=== PATIENT | male | born 1980 | race Caucasian/White ===

== ENCOUNTER 2024-03-30 08:58 | Inpatient (IN) ==
--- NOTE | 2024-03-30 09:33 | Emergency Department Note ---
Impression & Plan Abscess of rectum ED Provider Note Provider: Jesus Fernandez MD DATE OF SERVICE: 03/30/2024 CHIEF COMPLAINT: Lower abdominal to rectal pain HISTORY OF PRESENT ILLNESS: Patient is a 43-year-old gentleman distant history of opioid dependence presenting here today reporting over the past maybe a week or so some rectal discomfort into the mid to right lower abdomen. Worsened Tuesday and was seen by his report at [facility] on Tuesday. Was diagnosed with a rectal access and started on Augmentin. He is been taking the antibiotic but due to worsening pain and discomfort came here. No nausea or vomiting. Has not had a bowel movement in several days but no rectal bleeding. No blood in the urine reported with maybe little bit of decreased urination. Denies a history of rectal or anal abscesses. Reports pain worsened again and now spread little into the both testicle area. Denies testicular swelling. Denies trauma. No chest pain or shortness of breath reported. Has been using some Tylenol but not this morning. PAST MEDICAL HISTORY: As noted above MEDICATIONS: Reviewed home medications SOCIAL HISTORY: Smoker PHYSICAL EXAM: GENERAL: alert and oriented on stretcher appears uncomfortable leaning on the right hip Head: normocephalic and atraumatic EYES: No injection, discharge or icterus. PERRL, EOMI. NECK: Trachea midline ENT: Mucous membranes pink and moist. LUNGS: Airway patent. No retractions or tachypnea HEART: Regular rate and rhythm. ABDOMEN: Soft some slight mid right lower abdominal tenderness. No particular guarding or distention appreciable otherwise. No upper abdominal tenderness. Rectal: With nurse RN manager of security, no obvious external erythema or fluctuance. Some slight tenderness just posterior to the anal verge as well as slightly into the perineum. No obvious swelling or redness of the testicles or gangrenous changes noted. SKIN: Acyanotic, warm, dry, without rashes EXTREMITIES: Without swelling, tenderness or deformity NEUROLOGICAL: No focal deficits. No aphasia. No facial droop or slurred speech. Ambulatory. EK bpm sinus tachycardia. No PVC or PAC. No acute ST segment elevation with QTc 467. CONTINUOUS CARDIAC MONITORING: was ordered and showed a heart rate of 100s-110s bpm in sinus tachycardia Patient's laboratory studies and imaging reviewed. Differential includes Appendicitis, testicular torsion, infections, diverticulitis, UTI, obstruction, mesenteric ischemia, aortic pathology, inflammatory bowel disease, renal colic, PUD, pancreatitis, biliary pathology, hernia, volvulus, constipation, as well as other pathologies. IMPRESSION/MEDICAL DECISION MAKING: Patient appearing uncomfortable. Afebrile here. Has been Augmentin for several days reportedly without a rectal abscess. Cannot see outside imaging at this time. Given worsening will complete imaging today to evaluate. Doubt this is primarily testicular. Question of rectal abscess. No obvious skin findings but obviously want to exclude any Magaly's component. Will give empiric Zosyn at this time and some IV fluids and Toradol for pain. Some mild lower abdominal tenderness but not severely distended or peritoneal. Prior cholecystectomy reported and again no significant upper abdominal reports. Does not seem like kidney stone or primarily urinary related. Blood work today with leukocytosis of 16 without anemia. Normal platelet count. Some hyponatremia 130 with normal creatinine and LFT abnormalities. Discussion with Dr. Soler of radiology he sees findings of rectal abscess and has some suspicion for perforation may be present. Reached out discussed with general surgery as well as our interventional radiology physician internal medicine physician assistant.. Patient again denies any Fleet enema or rectal or anal intrusion recently. No history of rectal abscess reported. Covered again with Zosyn and vancomycin. Surgery initially recommended we see if colorectal surgery at [facility] would accept the patient. In discussion with colorectal surgery at [facility] they recommended general surgery continue care for the patient here. General surgery evaluated the patient and recommend admission to medicine for continued care here at this time. 2.5 L of total IV fluid ordered for hydration more than 30 ml/kg IVF. DIAGNOSIS: Rectal abscess DISPOSITION: Hospitalist will evaluate Patient was agreeable with this plan. Past Med/Surg History Problem List Abscess of rectum (Acute) Social History Smoking Status: Current every day smoker Preferred Language: Serbian Feels Safe at Home: Yes Allergies Allergies Allergy/AdvReac Type Severity Reaction Status Date / Time Unable to Assess Allergy Unverified 03/30/24 11:30 Home Meds Home Medications Medication Instructions Recorded Confirmed amoxicillin 875 mg-potassium 1 tab PO Q12H 03/30/24 03/30/24 clavulanate 125 mg tablet omeprazole 20 mg capsule,delayed 20 mg PO DAILY 03/30/24 03/30/24 release Results & Data (ED) Vital Signs Vital Signs - 24 hr 03/30/24 09:09 03/30/24 09:20 03/30/24 09:27 Temperature 36.9 C 37.2 C Temperature Source Temporal Artery Scan Oral Pulse Rate 129 H 113 H Pulse Rate [Right Finger] Pulse Rate from SpO2 Sensor Respiratory Rate 17 Respiratory Effort / Characteristics Non-Labored Spontaneous Respiratory Depth Normal Blood Pressure 122/73 Blood Pressure [Right Arm] Blood Pressure Mean 89 Blood Pressure Mean [Right Arm] Pulse Oximetry 98 Oxygen Delivery Method Room Air Sepsis Recent Fever Within 48 Hours No Sepsis New/Unexplained Change in Mental Status No Sepsis Action Taken by Nursing No Action Required 03/30/24 10:30 03/30/24 11:00 03/30/24 11:03 Temperature Temperature Source Pulse Rate 105 H Pulse Rate [Right Finger] 107 H Pulse Rate from SpO2 Sensor Respiratory Rate 24 20 Respiratory Effort / Characteristics Non-Labored Respiratory Depth Normal Blood Pressure 123/79 121/81 Blood Pressure [Right Arm] 140/73 Blood Pressure Mean 93 87 Blood Pressure Mean [Right Arm] 95 Pulse Oximetry 94 Oxygen Delivery Method Room Air Sepsis Recent Fever Within 48 Hours Sepsis New/Unexplained Change in Mental Status Sepsis Action Taken by Nursing 03/30/24 11:09 03/30/24 11:39 03/30/24 11:57 Temperature Temperature Source Pulse Rate 112 H 99 H 109 H Pulse Rate [Right Finger] Pulse Rate from SpO2 Sensor 112 H 99 H 108 H Respiratory Rate 24 26 H 22 Respiratory Effort / Characteristics Respiratory Depth Blood Pressure 121/81 Blood Pressure [Right Arm] Blood Pressure Mean 94 Blood Pressure Mean [Right Arm] Pulse Oximetry 97 95 96 Oxygen Delivery Method Room Air Sepsis Recent Fever Within 48 Hours Sepsis New/Unexplained Change in Mental Status Sepsis Action Taken by Nursing 03/30/24 12:03 03/30/24 12:12 03/30/24 12:39 Temperature Temperature Source Pulse Rate 100 H 103 H 108 H Pulse Rate [Right Finger] Pulse Rate from SpO2 Sensor 101 H 104 H 108 H Respiratory Rate 21 25 H 19 Respiratory Effort / Characteristics Respiratory Depth Blood Pressure Blood Pressure [Right Arm] Blood Pressure Mean Blood Pressure Mean [Right Arm] Pulse Oximetry 96 95 96 Oxygen Delivery Method Sepsis Recent Fever Within 48 Hours Sepsis New/Unexplained Change in Mental Status Sepsis Action Taken by Nursing 03/30/24 12:48 03/30/24 13:21 Temperature Temperature Source Pulse Rate 102 H 109 H Pulse Rate [Right Finger] Pulse Rate from SpO2 Sensor 102 H 227 H Respiratory Rate 24 20 Respiratory Effort / Characteristics Respiratory Depth Blood Pressure Blood Pressure [Right Arm] Blood Pressure Mean Blood Pressure Mean [Right Arm] Pulse Oximetry 97 97 Oxygen Delivery Method Sepsis Recent Fever Within 48 Hours Sepsis New/Unexplained Change in Mental Status Sepsis Action Taken by Nursing Laboratory Data 03/30/24 Unknown 03/30/24 Unknown Lab Results 03/30/24 Range/Units 09:39 POC Hgb 15.6 (14.0-18.0) g/dl POC Hct 46 (42-52) % POC Sodium 130 L (135-144) mmol/L POC Potassium 3.8 (3.3-5.0) mmol/L POC Chloride 93 L (101-112) mmol/L POC Total CO2 23 L (24-31) mmol/L POC Anion Gap 18.0 (16-25) mmol/L POC BUN 5 L (7-18) mg/dl POC Creatinine 0.8 (0.6-1.3) mg/dl POC Glucose (other) 124 H (70-99) mg/dl POC Ioniz Calcium Jay 1.14 (1.12-1.32) mmol/l Administered Medications Sodium Chloride (Nss) 1,000 mls @ 80 mls/hr IV .[id number] WILLIAMS Stop: 03/31/24 14:44 Last Admin: 03/30/24 15:30 Dose: 80 mls/hr Documented By: NRB Oxycodone HCl (Oxycodone Hcl Ir 5 Mg Tab (Immediate Release)) 5 mg PO Q6H PRN PRN Reason: Severe Pain (Scale 7, 8, 9,10) Stop: 04/13/24 13:44 Last Admin: 03/30/24 14:40 Dose: 5 mg Documented By: ALS Discontinued Medications Sodium Chloride (Nss) 1,000 mls @ 999 mls/hr IV .Q1H1M STA Stop: 03/30/24 10:28 Last Infusion: 03/30/24 11:26 Dose: Infused Documented By: Admin: 03/30/24 09:52 Dose: 999 mls/hr Documented By: ALS Piperacillin Sod/Tazobactam Sod (Zosyn) 4.5 gm in 100 mls @ 200 mls/hr IV NOW ONE Stop: 03/30/24 09:57 Last Infusion: 03/30/24 10:21 Dose: Infused Documented By: Admin: 03/30/24 09:51 Dose: 200 mls/hr Documented By: BREEZY Vancomycin HCl 1,500 mg/ (Sodium Chloride) 530 mls @ 200 mls/hr IV NOW ONE Stop: 03/30/24 13:43 Last Infusion: 03/30/24 13:53 Dose: Infused Documented By: Admin: 03/30/24 11:45 Dose: 200 mls/hr Documented By: ALS Sodium Chloride (Nss) 1,000 mls @ 999 mls/hr IV .Q1H1M ONE Stop: 03/30/24 14:02 Last Infusion: 03/30/24 15:31 Dose: Infused Documented By: Admin: 03/30/24 13:33 Dose: 999 mls/hr Documented By: ALS Sodium Chloride (Nss) 500 mls @ 999 mls/hr IV .Q31M ONE Stop: 03/30/24 13:32 Last Infusion: 03/30/24 13:53 Dose: Infused Documented By: Admin: 03/30/24 13:02 Dose: 999 mls/hr Documented By: DAVID Ioversol (Optiray 320 100ml) 94 ml IV ONCE ONE Stop: 03/30/24 10:16 Last Admin: 03/30/24 10:15 Dose: 94 ml Documented By: AQUILES Ketorolac Tromethamine (Ketorolac Tromethamine 15 Mg/Ml Vial) 10 mg IV NOW STA Stop: 03/30/24 09:29 Last Admin: 03/30/24 09:51 Dose: 10 mg Documented By: BREEZY Imaging Data Radiologist's Impression: Abdomen/Pelvis CT 03/30/24 09:28 CT SCAN OF THE ABDOMEN AND PELVIS WITH IV CONTRAST CLINICAL HISTORY: Lower abdominal/rectal pain. COMPARISON STUDY: No priors. TECHNIQUE: Following the IV administration of 94 cc of Optiray 320, CT scan of the abdomen and pelvis is performed from the lung bases to the proximal femora. Images are reviewed in the axial, sagittal, and coronal planes. IV contrast was administered without complication. A dose lowering technique was utilized adhering to the principles of ALARA. CT DOSE: 1347.81 mGy.cm FINDINGS: Lung bases: The heart is normal in size and without pericardial effusion. The lung bases are clear. Liver: The contrast-enhanced liver is normal in size, contour, and attenuation. Fatty infiltration is seen adjacent to the falciform ligament. There is no intrahepatic biliary ductal dilatation. The hepatic veins and portal veins are patent. Gallbladder: Surgically absent and clips in the gallbladder fossa. Spleen: Normal in size and attenuation. Pancreas: Unremarkable. Adrenal glands: Unremarkable. Kidneys: The contrast enhanced kidneys are normal in size and without hydronephrosis. The kidneys enhance symmetrically. A 4 mm nonobstructing calculus is seen on the left. No right renal calculi are clearly identified on this contrast-enhanced examination and there is no ureteral stone. Abdominal vasculature: The abdominal aorta is normal in course and caliber noting mild atherosclerotic calcification. Bowel: No bowel obstruction is seen. The rectal wall is thickened with significant surrounding inflammation. There is apparent mucosal discontinuity seen posteriorly involving the lower rectum which is suspicious for perforation. A multiloculated gas and fluid containing collection posterior to the rectum measures 6.4 x 3.3 x 4.2 cm as seen on axial image #325. This closely approximates but does not extend through the levator musculature. The appendix is not visualized. Peritoneum: There is no intraperitoneal free air or abdominal ascites. There is a small fat-containing umbilical hernia. Lymphadenopathy: None. Pelvic viscera: The the bladder wall appears thickened. The prostate and seminal vesicles are normal as imaged. Skeletal structures: No lytic or blastic lesions are seen. IMPRESSION: 1. There is evidence of proctitis with a large posterior perirectal abscess as detailed above. 2. There is apparent mucosal discontinuity involving the posterior aspect of the lower rectum. Perforation is not excluded. 3. Bladder wall thickening is nonspecific and likely related to adjacent inflammation. Correlate with clinical findings and urinalysis. 4. Left-sided nephrolithiasis. 5. Additional findings as above. ACT 112: Negative or not required by law. Electronically signed by: Pepe Soler M.D. 03/30/2024 10:34 AM Discharge Plan Visit Data Chief Complaint: Infection Stated Complaint: RECTAL INFECTION ED Provider: Jesus Fernandez Discharge Problem: Abscess of rectum Patient Disposition: Being Evaluated by Hospitalist
[2024-03-30 09:51] LABS: iSTAT Creatinine 0.8 mg/dl (0.6-1.3); iSTAT Hemoglobin 15.6 g/dl (14.0-18.0); iSTAT Ionized Calcium 1.14 mmol/l (1.12-1.32); iSTAT Potassium 3.8 mmol/L (3.3-5.0)
[2024-03-30] MEDS: KETOROLAC TROMETHAMINE 15 MG/ML VIAL IV STA (09:51)
[2024-03-30] MEDS: PIPERACILLIN/TAZOBACTAM 4.5 GM/100 ML BAG IV ONE (09:51)
[2024-03-30] MEDS: SODIUM CHLORIDE 0.9% 1,000 ML IV STA (09:52)
[2024-03-30 10:07] LABS: Basophils # (auto) 0.02 K/uL (0.00-0.20); Basophils % (auto) 0.1 %; Eosinophils # (auto) 0.04 K/uL (0.00-0.50); Eosinophils % (auto) 0.2 %; Hemoglobin 14.4 g/dl (14.0-18.0); Immature Granulocytes # (auto) 0.09 K/uL (0.01-0.20); Immature Granulocytes % (auto) 0.6 %; Lymphocytes % (auto) 4.3 %; Mean Corpuscular Hemoglobin 30.6 pg (25.0-34.0); Mean Corpuscular Hgb Conc 34.3 g/dL (32.0-36.0); Mean Corpuscular Volume 89.4 fL (80.0-100.0); Mean Platelet Volume 10.2 fL (9.4-12.4); Monocytes # (auto) 1.57 K/uL (0.11-0.59); Monocytes % (auto) 9.6 %; Neutrophils # (auto) 13.88 K/uL (1.40-6.50); Neutrophils % (auto) 85.2 %; Platelet Count 304 K/uL (130-400); RDW Standard Deviation 42.8 fL (36.4-46.3)
[2024-03-30 10:13] LABS: Albumin Globulin Ratio 1.2 (0.9-2); BUN Creatinine Ratio 8.1 (10-20); Bilirubin,Total 0.9 mg/dl (0.2-1.0); Creatinine Clr Calc Pharmacy 143.2 ml/min; Est GFR (Non-African American) 112.2 ml/min; Globulin 3.3 gm/dl (2.5-4.0); Potassium 3.7 mmol/L (3.5-5.1); Total Protein 7.3 gm/dl (6.0-8.3)
[2024-03-30] MEDS: OPTIRAY 320 100ml IV ONE (10:15)
[2024-03-30 10:22] LABS: Prothrombin Time 11.1 Seconds (9.0-12.0)
--- NOTE | 2024-03-30 10:35 | CT Scan Report ---
CT SCAN OF THE ABDOMEN AND PELVIS WITH IV CONTRAST CLINICAL HISTORY: Lower abdominal/rectal pain. COMPARISON STUDY: No priors. TECHNIQUE: Following the IV administration of 94 cc of Optiray 320, CT scan of the abdomen and pelvi s is performed from the lung bases to the proximal femora. Images are reviewed in the axial, sagittal , and coronal planes. IV contrast was administered without complication. A dose lowering technique wa s utilized adhering to the principles of ALARA. CT DOSE: 1347.81 mGy.cm FINDINGS: Lung bases: The heart is normal in size and without pericardial effusion. The lung bases are clear. Liver: The contrast-enhanced liver is normal in size, contour, and attenuation. Fatty infiltration is seen adjacent to the falciform ligament. There is no intrahepatic biliary ductal dilatation. The hep atic veins and portal veins are patent. Gallbladder: Surgically absent and clips in the gallbladder fossa. Spleen: Normal in size and attenuation. Pancreas: Unremarkable. Adrenal glands: Unremarkable. Kidneys: The contrast enhanced kidneys are normal in size and without hydronephrosis. The kidneys enh ance symmetrically. A 4 mm nonobstructing calculus is seen on the left. No right renal calculi are cl early identified on this contrast-enhanced examination and there is no ureteral stone. Abdominal vasculature: The abdominal aorta is normal in course and caliber noting mild atheroscleroti c calcification. Bowel: No bowel obstruction is seen. The rectal wall is thickened with significant surrounding inflam mation. There is apparent mucosal discontinuity seen posteriorly involving the lower rectum which is suspicious for perforation. A multiloculated gas and fluid containing collection posterior to the rec gilma measures 6.4 x 3.3 x 4.2 cm as seen on axial image #325. This closely approximates but does not e xtend through the levator musculature. The appendix is not visualized. Peritoneum: There is no intraperitoneal free air or abdominal ascites. There is a small fat-containin g umbilical hernia. Lymphadenopathy: None. Pelvic viscera: The the bladder wall appears thickened. The prostate and seminal vesicles are normal as imaged. Skeletal structures: No lytic or blastic lesions are seen. IMPRESSION: 1. There is evidence of proctitis with a large posterior perirectal abscess as detailed above. 2. There is apparent mucosal discontinuity involving the posterior aspect of the lower rectum. Perfor ation is not excluded. 3. Bladder wall thickening is nonspecific and likely related to adjacent inflammation. Correlate with clinical findings and urinalysis. 4. Left-sided nephrolithiasis. 5. Additional findings as above. ACT 112: Negative or not required by law. Electronically signed by: Pepe Soler M.D. 03/30/2024 10:34 AM
--- NOTE | 2024-03-30 10:53 | Electrocardiogram Report ---
Test Reason : Blood Pressure : */* mmHG Vent. Rate : 107 BPM Atrial Rate : 107 BPM P-R Int : 132 ms QRS Dur : 82 ms QT Int : 350 ms P-R-T Axes : 62 54 69 degrees QTcB Int : 467 ms Sinus tachycardia Prolonged QT Abnormal ECG No previous ECGs available Confirmed by Jesus Bailey ([id number]) on 03/30/2024 10:52:57 AM Referred By: Confirmed By: Jesus Bailey
[2024-03-30] MEDS ORDERED: VANCOMYCIN CONSULT ACTIVE PRN (11:05)
[2024-03-30] MEDS: VANCOMYCIN HCL 1,500 MG in SODIUM CHLORIDE 0.9% 500 ML IV ONE (11:45)
--- NOTE | 2024-03-30 13:00 | Surgery Consultation ---
<Statement entered by Macarena Valencia DO - 03/31/24 07:56> This case was discussed with the surgical PA, I agree with this plan Date of Consultation March 30, 2024 Assessment & Plan (1) Abscess of rectum: This is a 43yM with a past history of IVDA who presents to our ER on 03/30/24 with complaints of lower abdominal pain and rectal pain. He states it started on Tuesday and worsened on Tuesday prompting him to go [facility]. He states they diagnosed him with a jason rectal abscess via CT scan but did not exam his anal/buttocks area. He was discharged on a course of augmentin of which he has been taking. Despite this, his pain has worsened throughout the week therefore he presented here for further evaluation. He ended up undergoing a CT a/p which revealed proctitis with a large posterior perirectal abscess measuring 6.4x3.3x4.2cm. There is apparent mucosal discontinuity involving the posterior aspect of the lower rectum. Perforation is not excluded. No stool regimen per rectum. In the ER blood work shows a WBC 16.3, Hbg 14.2, Cr 0.7. Vitals show patient is tachycardic to the 100s-110s, temp 98-99F, stable blood pressure. On exam patient is awake/alert. Abdomen is soft, mild distention, with discomfort to palpation in the suprapubic regions and off to the mid/right lower abdomen. On exam of rectal region there is no obvious areas of erythema/induration/fluctuance or drainage. He has some tenderness noted in the perineal region. After review of patient's CT scan images I discussed the patient with my attending and radiology. Radiology believes pt should be sent out and transferred & unable to perform drainage here. We then asked the ER at this time given the size of the abscess, location, and the ? of possible rectal perforation to work on transfer as the patient would be best served by a tertiary center where there is a colorectal surgeon present in addition to a more robust IR capabilities than we can offer here at this time. Unfortunately after the ER reached out to a tertiary center who refused to accept patient at this time and recommended management okay by us here. For now we will keep patient NPO with IVF and IV abx. We will continue to monitor the patient closely for any deterioration in status. History of Present Illness History of Present Illness This is a 43yM with a past history of IVDA who presents to our ER on 03/30/24 with complaints of lower abdominal pain and rectal pain. He states it started on Tuesday and worsened on Tuesday prompting him to go to [facility] for [facility]. He states they diagnosed him with a jason rectal abscess via CT scan but did not exam his anal/buttocks area. He was discharged on a course of augmentin of which he has been taking. Despite this, his pain has worsened throughout the week therefore he presented here for further evaluation. He ended up undergoing a CT a/p which revealed proctitis with a large posterior perirectal abscess measuring 6.4x3.3x4.2cm. There is apparent mucosal disc ontinuity involving the posterior aspect of the lower rectum. Perforation is not excluded. Patient states he has been running constipated and he is normally regular. Last real BM was beginning of this week. He has been taking oral stool softeners without success. He denies trying any suppositories or enema's or inserting anything per rectum. He denies any fevers/chills, nausea/vomiting, FREDERICK/dizziness/lightheadedness. He ate last night without worsening symptoms. Never been told he had a jason rectal abscess in the past. He has been peeing okay. PSH includes cholecystectomy. Allergies Allergy/AdvReac Type Severity Reaction Status Date / Time Unable to Assess Allergy Unverified 03/30/24 11:30 Home Medications Medication Instructions Recorded Confirmed Type amoxicillin 875 mg-potassium 1 tab PO Q12H 03/30/24 03/30/24 History clavulanate 125 mg tablet omeprazole 20 mg capsule,delayed 20 mg PO DAILY 03/30/24 03/30/24 History release Patient History Social History Smoking Status: Current every day smoker Preferred Language: German Feels Safe at Home: Yes Review of Systems Constitutional: no fever and no chills Respiratory: no dyspnea Cardiovascular: no chest pain Gastrointestinal: + abdominal pain (lower abdominal discom fort) and + constipation; no nausea and no vomiting Neurologic: no dizziness and no headache(s) Physical Exam Physical Exam: awake/alert Respiratory: normal respiratory effort Gastrointestinal (Abdomen): Inspection/Auscultation: + abdomen distended (mild) Percussion/Palpation: + abdomen tender (discomfort to palpation across lower abdomen, worse supra pubic region) and abdomen soft Results & Data Vital Signs (Past 12 Hours) Vital Signs Temp Pulse Pulse Resp BP BP Pulse Ox 03/30/24 11:09 112 H 24 121/81 97 03/30/24 11:03 121/81 03/30/24 11:00 107 H 20 140/73 94 03/30/24 10:30 105 H 24 123/79 03/30/24 09:27 113 H 03/30/24 09:20 99.0 F 03/30/24 09:09 98.4 F 129 H 17 122/73 98 O2 Del Method 03/30/24 11:09 Room Air 03/30/24 11:03 03/30/24 11:00 Room Air 03/30/24 10:30 03/30/24 09:27 03/30/24 09:20 03/30/24 09:09 Room Air Diagnostic Findings CT SCAN OF THE ABDOMEN AND PELVIS WITH IV CONTRAST CLINICAL HISTORY: Lower abdominal/rectal pain. COMPARISON STUDY: No priors. TECHNIQUE: Following the IV administration of 94 cc of Optiray 320, CT scan of the abdomen and pelvis is performed from the lung bases to the proximal femora. Images are reviewed in the axial, sagittal, and coronal planes. IV contrast was administered without complication. A dose lowering technique was utilized adhering to the principles of ALARA. CT DOSE: 1347.81 mGy.cm FINDINGS: Lung bases: The heart is normal in size and without pericardial effusion. The lung bases are clear. Liver: The contrast-enhanced liver is normal in size, contour, and attenuation. Fatty infiltration is seen adjacent to the falciform ligament. There is no intrahepatic biliary ductal dilatation. The hepatic veins and portal veins are patent. Gallbladder: Surgically absent and clips in the gallbladder fossa. Spleen: Normal in size and attenuation. Pancreas: Unremarkable. Adrenal glands: Unremarkable. Kidneys: The contrast enhanced kidneys are normal in size and without hydronephrosis. The kidneys enhance symmetrically. A 4 mm nonobstructing calculus is seen on the left. No right renal calculi are clearly identified on this contrast-enhanced examination and there is no ureteral stone. Abdominal vasculature: The abdominal aorta is normal in course and caliber noting mild atherosclerotic calcification. Bowel: No bowel obstruction is seen. The rectal wall is thickened with significant surrounding inflammation. There is apparent mucosal discontinuity seen posteriorly involving the lower rectum which is suspicious for perforation. A multiloculated gas and fluid containing collection posterior to the rectum measures 6.4 x 3.3 x 4.2 cm as seen on axial image #325. This closely approximates but does not extend through the levator musculature. The appendix is not visualized. Peritoneum: There is no intraperitoneal free air or abdominal ascites. There is a small fat-containing umbilical hernia. Lymphadenopathy: None. Pelvic viscera: The the bladder wall appears thickened. The prostate and seminal vesicles are normal as imaged. Skeletal structures: No lytic or blastic lesions are seen. IMPRESSION: 1. There is evidence of proctitis with a large posterior perirectal abscess as detailed above. 2. There is apparent mucosal discontinuity involving the posterior aspect of the lower rectum. Perforation is not excluded. 3. Bladder wall thickening is nonspecific and likely related to adjacent inflammation. Correlate with clinical findings and urinalysis. 4. Left-sided nephrolithiasis. 5. Additional findings as above. ACT 112: Negative or not required by law. Electronically signed by: Pepe Soler M.D. 03/30/2024 10:34 AM PG Care Time/CCT Total # of Minutes Spent Total Time Spent with Patient: Total time spent is greater than 50% in coordination of care (as documented) at patient's floor/unit and/or counseling patient: Coding Level of Care Code 15923 IN/OBS CONSULT LVL 4,60M Diagnoses Abscess of rectum K61.1
[2024-03-30] MEDS: SODIUM CHLORIDE 0.9% 500 ML IV ONE (13:02)
[2024-03-30 13:04] LABS: Influenza A virus by PCR Negative (Neg); Influenza B virus by PCR Negative (Neg); RSV by PCR Negative (Neg); SARS CoV2 RNA(COVID-19) Ceph NEGATIVE (Negative)
[2024-03-30] MEDS: SODIUM CHLORIDE 0.9% 1,000 ML IV ONE (13:33)
[2024-03-30] MEDS ORDERED: ONDANSETRON INJ 2 MG/ML 2 ML VIAL IV PRN (13:36)
[2024-03-30] MEDS ORDERED: ACETAMINOPHEN 325 MG TAB PO PRN (13:36)
--- NOTE | 2024-03-30 13:50 | History & Physical Report ---
Date of Service March 30, 2024 Assessment & Plan (1) Abscess of rectum: Plan Proctitis Rectal abscess Sepsis secondary to rectal infection Patient presented with rectal pain and pressure, failure of outpatient antibiotic therapy, pain and pressure progressed. Patient denies fever, reports no bowel movement or gas since Tuesday, denies nausea or vomiting, reports decreased appetite. Consult general surgery. IV fluid, n.p.o., IV antibiotic with Zosyn and vancomycin, pain management. PRN nausea meds Await further recommendation from general surgery. Other chronic medical conditions: Asthma, COPDteststable, chronic. DVT prophylaxis: Heparin subcu Full code History of Present Illness Chief Complaint: Rectal pain and pressure. Primary Care Provider: NO PCP 43-year-old male with PMH of asthma, COPD, current tobacco abuse presented to the ED with complaint of progressive rectal pain and pressure. Patient reports having rectal pain since Tuesday, went to [place] [place] [facility] on Tuesday and was discharged on Augmentin for rectal infection/abscess. Patient reports that the pain and pressure continued to worsen and hence presented to the ED. Patient denies febrile illness but has not moved bowel or gas since Tuesday. Patient denies sore throat or cough or chest pain or palpitation. Patient reports improvement in belly pain after pain medications at ED. Patient denies any pain or burning while passing urine, reports decreased appetite but denies nausea or vomiting. Patient reports smoking 1 packs a day for more than 30 years, reports drinking 4-6 beers a day, last drink was Tuesday. reports use of marijuana daily. Patient denies any chronic medications use at home, current medication is Augmentin that he was discharged with from recent ER visit for rectal infection. Full code Plan of care discussed with the patient and patient's significant other at bedside , both voiced understanding and were agreeable. Allergies Allergy/AdvReac Type Severity Reaction Status Date / Time Unable to Assess Allergy Unverified 03/30/24 11:30 Home Medications Medication Instructions Recorded Confirmed Type amoxicillin 875 mg-potassium 1 tab PO Q12H 03/30/24 03/30/24 History clavulanate 125 mg tablet omeprazole 20 mg capsule,delayed 20 mg PO DAILY 03/30/24 03/30/24 History release Past Med/Surg History Problem List (Updated 03/30/24 @ 13:05 by Jesus T Rebecca, M.D.) Abscess of rectum (Acute) Social History Smoking Status: Current every day smoker Preferred Language: British Feels Safe at Home: Yes Review of Systems Review of Systems: Negative otherwise mentioned in HPI. Physical Exam Physical Exam: GENERAL: Alert and oriented x3. NAD, on RA. HEENT: No pallor, no icterus. Pupils equal, round and reactive to light. Oral mucosa moist. NECK: No JVD, no neck masses. HEART: S1 and S2 heard. Regular rate and rhythm. Tachycardia. No murmur, no gallop. RESPIRATORY SYSTEM: Normal AP diameter. No accessory muscle use. No wheezing, no crackles. ABDOMEN: Soft, bowel sounds present, nontender, no distention. CENTRAL NERVOUS SYSTEM: No facial droop. Speech is clear. Obeys simple commands. Moves extremities. EXTREMITIES: No edema, no erythema seen. Rectal exam: no erythema noted but tenderness on palpation. Results & Data Results & Data Vital Signs (Past 12 Hours) Vital Signs Temp Pulse Pulse Resp BP BP Pulse Ox 03/30/24 12:48 102 H 24 97 03/30/24 12:39 108 H 19 96 03/30/24 12:12 103 H 25 H 95 03/30/24 12:03 100 H 21 96 03/30/24 11:57 109 H 22 96 03/30/24 11:39 99 H 26 H 95 03/30/24 11:09 112 H 24 121/81 97 03/30/24 11:03 121/81 03/30/24 11:00 107 H 20 140/73 94 03/30/24 10:30 105 H 24 123/79 03/30/24 09:27 113 H 03/30/24 09:20 37.2 C 03/30/24 09:09 36.9 C 129 H 17 122/73 98 O2 Del Method 03/30/24 12:48 03/30/24 12:39 03/30/24 12:12 03/30/24 12:03 03/30/24 11:57 03/30/24 11:39 03/30/24 11:09 Room Air 03/30/24 11:03 03/30/24 11:00 Room Air 03/30/24 10:30 03/30/24 09:27 03/30/24 09:20 03/30/24 09:09 Room Air
[2024-03-30] MEDS: oxyCODONE HCL IR 5 MG TAB (IMMEDIATE RELEASE) PO PRN (14:40)
[2024-03-30 14:44] LABS: Appearance Urine Clear (Clear); Bacteria Urine Automated None Seen (None Seen); Bilirubin Urine Negative (Negative); Blood Urine Negative (Negative); Cast Urine Automated 0-2 /lpf (0-2); Color Urine Yellow; Epithelial Cell Urine Auto 0-2 /hpf (0-2); Glucose Urine UA Trace (Negative); Ketones Urine 1+ (Negative); Leukocyte Esterase Urine Negative (Negative); Nitrite Urine Negative (Negative); Protein Urine Trace (Negative); RBC Urine Automated 0-2 /hpf (0-2); Specific Gravity Urine 1.015 (1.000-1.030); Urobilinogen Urine Negative (Negative); WBC Urine Automated 0-5 /hpf (0-5)
[2024-03-30] MEDS: SODIUM CHLORIDE 0.9% 1,000 ML IV SCH (15:30)
[2024-03-30] MEDS: KETOROLAC TROMETHAMINE 15 MG/ML VIAL IV PRN (16:51)
[2024-03-30] MEDS: PIPERACILLIN/TAZOBACTAM 4.5 GM/100 ML BAG IV SCH (17:19)
[2024-03-30] MEDS: VANCOMYCIN HCL 1,000 MG in SODIUM CHLORIDE 0.9% 250 ML IV SCH (19:50)
[2024-03-30] MEDS: HEPARIN SOD 5,000 UNIT/0.5 ML VIAL SQ SCH (21:03)
[2024-03-30] MEDS ORDERED: Nursing to Pharmacy Communication SCH (21:45)
[2024-03-31 07:30] LABS: Hemoglobin 12.9 g/dl (14.0-18.0); Mean Corpuscular Hemoglobin 30.2 pg (25.0-34.0); Mean Corpuscular Hgb Conc 33.1 g/dL (32.0-36.0); Mean Corpuscular Volume 91.3 fL (80.0-100.0); Mean Platelet Volume 10.1 fL (9.4-12.4); Platelet Count 277 K/uL (130-400); RDW Coefficient of Variation 13.2 % (11.5-14.5); RDW Standard Deviation 44.7 fL (36.4-46.3); Red Blood Count 4.27 M/uL (4.70-6.10); White Blood Count 13.41 K/ul (4.8-10.8)
[2024-03-31 07:53] LABS: BUN Creatinine Ratio 11.4 (10-20); Calcium 8.1 mg/dl (8.6-10.3); Creatinine Clr Calc Pharmacy 152.2 ml/min; Est GFR (Non-African American) 114.8 ml/min; Magnesium 1.4 mg/dl (1.7-2.4); Phosphorus 2.8 mg/dl (2.5-4.9)
--- NOTE | 2024-03-31 11:53 | Hospitalist Progress Note ---
Date of Service March 31, 2024 Assessment & Plan (1) Abscess of rectum: (2) Hypomagnesemia: Plan Patient 43-year-old gentleman with perirectal abscess Patient remains significantly ill, requiring IV antibiotics No plans for surgical intervention today Advance diet Replace magnesium Continue to monitor laboratory studies Activity as tolerated Admission and Anticipated Discharge Date Admission Date: March 30, 2024 Subjective Patient states he is feeling much better the pressure and pain in the perirectal area is improved. Physical Exam Physical Exam: Constitutional: Alert HEENT: Mucous membranes moist. Lungs: Clear to auscultation, decreased, no wheezes rales or rhonchi CV: S1-S2, regular Abdomen: Soft, nontender, nondistended Extremities: No significant edema Neuro: No focal deficits Psych: Cooperative, normal mood Results & Data Results & Data Vital Signs (Past 12 Hours) Vital Signs Temp Pulse Resp BP Pulse Ox O2 Del Method 03/31/24 08:00 Room Air 03/31/24 07:49 37.2 C 84 16 108/69 96 Room Air 03/31/24 06:12 94 H Diagnostic Findings Reviewed imaging, laboratory and diagnostic studies. Pertinent findings as below. WBCs 13.4, improved Magnesium 1.4
--- NOTE | 2024-03-31 12:09 | Pharmacy Report ---
Pharmacy PK ABX Note - Date of Service March 31, 2024 - Assessment and Plan Assessment 43 year old M receiving Vancomycin and Zosyn for treatment of perirectal abscess. * Day #1 of antimicrobial therapy. Afebrile. Leukocytosis improving. Renal fxn stable. * No cultures taken. Vancomycin ordered empirically so will d/c tomorrow evening. Plan Vancomycin * Loading dose: 1500 mg IV x 1 * Maintenance dose: 1000 mg IV every 8 hours * Regimen is predicted to achieve target AUC/GRACIA of 400-600 mg/L.hr * Trough level ordered for: 04/01/24 Pharmacy will continue to follow and will adjust dose/frequency as necessary. Thank you. Pharmacy has transitioned to AUC monitoring for vancomycin. AUC/GRACIA is the preferred PK/PD target and is associated with decreased risk of nephrotoxicity compared to traditional trough targets.
[2024-03-31] MEDS: MAGNESIUM SULFATE / D5W 1 GM/100 ML BAG IV SCH (12:24)
[2024-03-31] MEDS: MAGNESIUM OXIDE 400 MG TAB PO SCH (14:19)
--- NOTE | 2024-03-31 19:32 | Surgery Progress Note ---
Date of Service March 31, 2024 Assessment & Plan (1) Abscess of rectum: Plan: Abscess within the pelvis/presacral space. Afebrile, HD stable with decreased leukocytosis and improved symptoms A regular diet was initiated by medicine today Continue conservative management with IV abx Will f/u in the am Admission and Anticipated Discharge Date Admission Date: March 30, 2024 Subjective Patient seen and examined this am. States he feels much better than he did at admission. He denies N/V and pain. Physical Exam Constitutional: healthy appearing; not ill appearing, not in distress and not diaphoretic Respiratory: normal respiratory effort; no respiratory distress, no labored breathing and does not use accessory muscles Gastrointestinal (Abdomen): Inspection/Auscultation: abdomen normal to inspection; abdomen not distended Percussion/Palpation: abdomen soft; abdomen nontender, no guarding and abdomen not rigid There are no evidence signs of abscess formation on perianal examination. The patient states he no longer has tenderness with palpation of the perianal area and buttock region as it was prior to admission. Results & Data Vital Signs (Past 12 Hours) Vital Signs Temp Pulse Resp BP Pulse Ox O2 Del Method 03/31/24 16:53 37.3 C 98 H 03/31/24 15:09 37.7 C H 115 H 16 108/66 97 Room Air 03/31/24 08:00 Room Air 03/31/24 07:49 37.2 C 84 16 108/69 96 Room Air Laboratory Results WBC 13.4 this am from 16.3 yesterday PG Care Time/CCT Total # of Minutes Spent Total Time Spent with Patient: Total time spent is greater than 50% in coordination of care (as documented) at patient's floor/unit and/or counseling patient: Coding Level of Care Code 83711 SUB INP/OBS CARE 09/01MIN Diagnoses Abscess of rectum K61.1
[2024-04-01 06:08] LABS: Hemoglobin 12.2 g/dl (14.0-18.0); Mean Corpuscular Hemoglobin 29.8 pg (25.0-34.0); Mean Corpuscular Volume 90.2 fL (80.0-100.0); Mean Platelet Volume 9.6 fL (9.4-12.4); Platelet Count 289 K/uL (130-400); RDW Coefficient of Variation 13.2 % (11.5-14.5); RDW Standard Deviation 43.8 fL (36.4-46.3); White Blood Count 12.28 K/ul (4.8-10.8)
[2024-04-01 06:23] LABS: BUN Creatinine Ratio 10.7 (10-20); Est GFR (African American) 129.3 ml/min; Est GFR (Non-African American) 111.6 ml/min; Magnesium 1.8 mg/dl (1.7-2.4); Potassium 3.7 mmol/L (3.5-5.1)
--- NOTE | 2024-04-01 09:30 | Surgery Progress Note ---
Date of Service April 01, 2024 Assessment & Plan (1) Abscess of rectum: Plan: Abscess within the pelvis/presacral space. Patient had a very low grade fever to 37.7 at 3pm yesterday which resolved without intervention. HD stable with decreased leukocytosis to 12.28 today from 13.41 yesterday and stable to improved symptoms. Passing flatus with blood tinged liquid BM, not painful. A regular diet was initiated by medicine yesterday and the patient is tolerating this without sequelae Continue conservative management with IV abx. He is still receiving Zosyn at this time. He is on Heparin for DVT ppx. Ambulate ad elida May consider repeat CT prior to discharge but not too soon. If there is remaining abscess at that time, would consider PICC for home IV antibiotics as opposed to oral antibiotics at discharge. F/U am labs Surgery will continued to follow Admission and Anticipated Discharge Date Admission Date: March 30, 2024 Subjective I have seen and examined Andriy this am. He is without complaints this morning. He does admit that he had a brief rough episode yesterday afternoon where he felt some pain that was controlled with pain medication. He has not had return of pain since. He states he is passing gas and had a small clear liquid BM that seemed blood tinged, no pus. This morning he denies pain, N/V, F/C. Physical Exam Gastrointestinal (Abdomen): Inspection/Auscultation: abdomen normal to i nspection; abdomen not distended Percussion/Palpation: abdomen soft; abdomen nontender, no guarding and abdomen not rigid Results & Data Vital Signs (Past 12 Hours) Vital Signs Temp Pulse Resp BP Pulse Ox O2 Del Method 04/01/24 08:47 37.2 C 88 18 122/82 95 Room Air 04/01/24 07:45 Room Air 03/31/24 22:18 102 H 16 109/70 95 Room Air PG Care Time/CCT Total # of Minutes Spent Total Time Spent with Patient: Total time spent is greater than 50% in coordination of care (as documented) at patient's floor/unit and/or counseling patient: Coding Level of Care Code 30835 SUB INP/OBS CARE 09/01MIN Diagnoses Abscess of rectum K61.1
--- NOTE | 2024-04-01 11:23 | Hospitalist Progress Note ---
Date of Service April 01, 2024 Assessment & Plan (1) Perirectal abscess: (2) Hypomagnesemia: Plan Patient showing steady improvement Reviewed surgical consultation Continue IV Zosyn, narrow IV antibiotics, can discontinue vancomycin Repeat CT abdomen pelvis in a.m. to assess abscess Replace electrolytes Follow laboratory studies in a.m. Admission and Anticipated Discharge Date Admission Date: March 30, 2024 Subjective Patient reports feeling improved again Physical Exam Physical Exam: Constitutional: Alert, nontoxic HEENT: Mucous membranes moist. Lungs: Clear to auscultation, decreased, no wheezes rales or rhonchi CV: S1-S2, regular Abdomen: Soft, nontender, nondistended Extremities: No significant edema Rectal: Visual inspection of the perirectal area no purulent drainage, no swelling, no redness, no evidence of abscess, no tenderness to palpation Neuro: No focal deficits Psych: Cooperative, normal mood Results & Data Results & Data Vital Signs (Past 12 Hours) Vital Signs Temp Pulse Resp BP Pulse Ox O2 Del Method 04/01/24 08:47 37.2 C 88 18 122/82 95 Room Air 04/01/24 07:45 Room Air Diagnostic Findings Reviewed imaging, laboratory and diagnostic studies. Pertinent findings as below. Magnesium 1.8 WBCs 12.2 improved
[2024-04-01] MEDS: POTASSIUM CHLORIDE CRTAB 20 MEQ TABCR PO ONE (12:36)
[2024-04-01] MEDS: VANCOMYCIN LEVEL ONE (14:35)
[2024-04-01] MEDS: ALUMINUM/MAGNESIUM SUSP 30 ML UDC PO PRN (20:25)
[2024-04-02 07:02] LABS: Hemoglobin 12.8 g/dl (14.0-18.0); Mean Corpuscular Hemoglobin 30.3 pg (25.0-34.0); Mean Corpuscular Hgb Conc 33.7 g/dL (32.0-36.0); Mean Platelet Volume 9.8 fL (9.4-12.4); Platelet Count 355 K/uL (130-400); RDW Coefficient of Variation 13.3 % (11.5-14.5); RDW Standard Deviation 44.1 fL (36.4-46.3); Red Blood Count 4.22 M/uL (4.70-6.10); White Blood Count 6.91 K/ul (4.8-10.8)
[2024-04-02 07:25] LABS: BUN Creatinine Ratio 11.1 (10-20); Creatinine Clr Calc Pharmacy 131.5 ml/min; Est GFR (African American) 125.3 ml/min; Est GFR (Non-African American) 108.1 ml/min; Potassium 4.3 mmol/L (3.5-5.1)
[2024-04-02] MEDS: OPTIRAY 320 100ml IV ONE (08:07)
--- NOTE | 2024-04-02 10:06 | CT Scan Report ---
CT SCAN OF THE ABDOMEN AND PELVIS WITH IV CONTRAST CLINICAL HISTORY: Perirectal abscess. COMPARISON STUDY: Abdominal CT dated 03/30/2024 TECHNIQUE: Following the IV administration of 94 cc of Optiray 320, CT scan of the abdomen and pelvi s is performed from the lung bases to the proximal femora. Images are reviewed in the axial, sagittal , and coronal planes. IV contrast was administered without complication. A dose lowering technique wa s utilized adhering to the principles of ALARA. CT DOSE: 1344.18 mGy.cm FINDINGS: Lung bases: The heart is normal in size and without pericardial effusion. The lung bases are clear no ting bibasilar atelectasis. There is a small hiatal hernia. Liver: The contrast-enhanced liver is normal in size, contour, and attenuation. Fatty infiltration is seen adjacent to the falciform ligament. There is mild central intrahepatic biliary ductal dilatatio n. The hepatic veins and portal veins are patent. Gallbladder: Surgically absent noting clips in the gallbladder fossa. Spleen: Normal in size and attenuation. Pancreas: Unremarkable. Adrenal glands: Unremarkable. Kidneys: The contrast enhanced kidneys are normal in size and without hydronephrosis. The kidneys enh ance symmetrically. A 4 mm nonobstructing calculus is seen on the left. No right renal calculi are cl early identified on this contrast-enhanced examination and there is no ureteral stone. Abdominal vasculature: The abdominal aorta is normal in course and caliber noting mild atheroscleroti c calcification. Bowel: No bowel obstruction is identified. There is moderate colonic fecal retention. Again seen is s ignificant rectal wall thickening with surrounding inflammation. There is apparent mucosal discontinu ity seen posteriorly involving the lower rectum which remains suspicious for perforation. A multilocu lated gas and fluid containing collection posterior to the rectum measures 5.5 x 4.5 x 4.3 cm as seen on axial image #328. This closely approximates but does not extend through the levator musculature. The appendix is not visualized. Peritoneum: There is no intraperitoneal free air or abdominal ascites. There is a small fat-containin g umbilical hernia. Lymphadenopathy: None. Pelvic viscera: The bladder wall appears thickened with surrounding infiltration. The prostate and se shannan vesicles are normal as imaged. Skeletal structures: No lytic or blastic lesions are seen. IMPRESSION: 1. Again seen is evidence of proctitis with a large posterior perirectal abscess as detailed above. T he abscess has modestly decreased in size from 03/30/2024. 2. There is apparent mucosal discontinuity involving the posterior aspect of the lower rectum which a ppears to communicate with the collection. Rectal perforation is not excluded. 3. The bladder wall is thickened with surrounding infiltration. This is likely related to adjacent pr octitis. Correlate with clinical findings and urinalysis. 4. Left-sided nephrolithiasis. 5. Additional findings as above. ACT 112: Negative or not required by law. Electronically signed by: Pepe Soler M.D. 04/02/2024 10:05 AM
--- NOTE | 2024-04-02 12:11 | Surgery Progress Note ---
Date of Service April 02, 2024 Assessment & Plan (1) Perirectal abscess: Plan: Pt here w/ large jason rectal abscess and ? of rectal perforation on imaging WBC normalized today to 6, he is afebrile with stable vital signs He feels well overall, tolerating a diet, pain controlled Repeat CT a/p was obtained today that showed proctitis with a decrease in size of abscess, however still measuring 5.5 x 4.5 x 4.3 cm. There is also ongoing mention of mucosal discontinuity involving the posterior aspect of the lower rectum which appears to communicate with the collection. Rectal perforation is not excluded Happy that abscess size is improving, however still large enough that oral abx may not fully treat it. therefore we recommend a course of at least 2 weeks IV abx, which would include requiring a picc line Case management on board to assist in dispo planning as he has no insurance and this presents a challenge He should also require follow up with a colorectal surgeon as an outpt given location of abscess/size and ? of rectal mucosal discontinuity No plans for surgical intervention here Admission and Anticipated Discharge Date Admission Date: March 30, 2024 Supervising Physician Co-Signing Physician Notes The patient has no insurance which may alter discharge planning. His admitting team will be working closely with case management to work through this. Recommend 14 days of IV antibiotics with a repeat CT in 2 weeks. He may follow up with me in the office until he is able to secure insurance arrangements and a colorectal surgeon appointment. The patient will need a colonoscopy 6-8 weeks after this is resolved so he will need insurance moving forward. General surgery will sign off at this time. Subjective Patient reports ongoing improvement in his symptoms. He is tolerating a regular diet and having + BMs. does get an occasional twinge of pain in his lower abdomen with coughing. Physical Exam Physical Exam: awake/alert, no distress Gastrointestinal (Abdomen): Percussion/Palpation: abdomen soft Results & Data Vital Signs (Past 12 Hours) Vital Signs Temp Pulse Resp BP Pulse Ox O2 Del Method 04/02/24 10:29 Room Air 04/02/24 08:46 97.7 F 97 H 18 113/73 92 Room Air PG Care Time/CCT Total # of Minutes Spent Total Time Spent with Patient: Total time spent is greater than 50% in coordination of care (as documented) at patient's floor/unit and/or counseling patient: Coding Level of Care Code 38099 SUB INP/OBS CARE 09/01MIN Diagnoses Perirectal abscess K61.1
--- NOTE | 2024-04-02 15:21 | Hospitalist Progress Note ---
Date of Service April 02, 2024 Assessment & Plan (1) Perirectal abscess: (2) Hypomagnesemia: Plan Communication with surgical team. Recommending prolonged course of IV antibiotics and outpatient colorectal surgery. Communication with care management team, patient does not have insurance, may be difficult to coordinate home antibiotics Continue IV antibiotics here in the hospital, place PICC line for possible outpatient antibiotics PICC consent reviewed with patient and completed May need to consider patient continue antibiotics here in the hospital and continue to monitor size of abscess or consider revisiting potential transfer for immediate surgical intervention. Admission and Anticipated Discharge Date Admission Date: March 30, 2024 Subjective Patient is feeling significantly improved Physical Exam Physical Exam: Constitutional: Alert, nontoxic HEENT: Mucous membranes moist. Lungs: Clear to auscultation, decreased, no wheezes rales or rhonchi CV: S1-S2, regular Abdomen: Soft, nontender, nondistended Extremities: No significant edema Neuro: No focal deficits Psych: Cooperative, normal mood Results & Data Results & Data Vital Signs (Past 12 Hours) Vital Signs Temp Pulse Resp BP Pulse Ox O2 Del Method 04/02/24 14:18 36.5 C 92 H 18 113/73 94 Room Air 04/02/24 10:29 Room Air 04/02/24 08:46 36.5 C 97 H 18 113/73 92 Room Air Diagnostic Findings Reviewed imaging, laboratory and diagnostic studies. Pertinent findings as below. CT abdomen report reviewed, decreasing size of abscess WBC 6.9, improved BMP stable Magnesium 2.0
--- NOTE | 2024-04-03 10:43 | Surgery Progress Note ---
Date of Service April 03, 2024 Assessment & Plan (1) Perirectal abscess: Plan: Pt here w/ large jason rectal abscess and ? of rectal perforation on imaging Repeat CT scan yesterday showed ongoing proctitis with decrease in size of abscess to 5.5 x 4.5 x 4.3 cm and mention of mucosal discontinuity involving the posterior aspect of the lower rectum which appears to communicate with the collection. Rectal perforation is not excluded WBC 6.9. patient afebrile with stable vitals Denies abdominal pain or rectal pain. + bowel function. tolerating a diet Yesterday we recommended patient be discharged on a course of 2 weeks IV abx via picc with outpt colorectal f/u I have been notified that the patient does not have insurance which makes d/c planning a little more challenging. but, i have been notified this AM that case management was able to find out that the cost for abx coverage at home would be 33$/day. If pt is agreeable to this i think this plan seems reasonable He should also require follow up with a colorectal surgeon as an outpt given location of abscess/size and ? of rectal mucosal discontinuity No plans for surgical intervention here. will follow up later today Admission and Anticipated Discharge Date Admission Date: March 30, 2024 Supervising Physician Co-Signing Physician Notes Patient discussed with SUSAN Pringle, agree with above. Perirectal abscess responding to antibiotics and nonoperative management. Case management is coordinated to get him assistance for home health care a reasonable fry, we would recommend continued antibiotics for at least 2 weeks with follow-up imaging. Follow-up with colorectal surgeon as an outpatient, if not able to schedule appointment in that timeframe, then follow-up with Dr. Daniel Thorne in the next 1 to 2 weeks. Subjective Pt feels well. denies abdominal or rectal pain. Passing gas and BMs. no n/v. tolerating diet Physical Exam Physical Exam: awake/alert, no distress Respiratory: normal respiratory effort Gastrointestinal (Abdomen): Inspection/Auscultation: abdomen not distended Percussion/Palpation: abdomen soft; abdomen nontender Results & Data Vital Signs (Past 12 Hours) Vital Signs Temp Pulse Resp BP Pulse Ox O2 Del Method 04/03/24 07:49 97.5 F L 79 18 104/71 97 Room Air PG Care Time/CCT Total # of Minutes Spent Total Time Spent with Patient: Total time spent is greater than 50% in coordination of care (as documented) at patient's floor/unit and/or counseling patient: Coding Level of Care Code 31805 SUB INP/OBS CARE Diagnoses Perirectal abscess K61.1
--- NOTE | 2024-04-03 13:08 | Hospitalist Progress Note ---
<Statement entered by Albert Mirza, DO - 04/03/24 14:46> I have seen and examined the patient and have discussed the case with the provider above. I have reviewed the advanced practitioner's documentation, and I agree with, and take responsibility for that plan of care. 15 minutes spent on coordinating care with MADINA Patient seen and evaluated, no acute distress Plan of care as outlined below Date of Service April 03, 2024 Assessment & Plan (1) Abscess of rectum: Plan Proctitis Rectal abscess Sepsis secondary to rectal infection Gen surg on board repeat CT with evidence of decrease in size of jason rectal abscess, 5.5 x 4.5 x 4.3cm continue IV zosyn - he will need outpt course for additional 2 weeks with colorectal follow up/establishment CM working on logistics as pt is uninsured discussed with Gen/surg about re entertaining idea of potential transfer to tertiary given persistent abscess vs home with IV antibiotics, awaiting recs Other chronic medical conditions: Asthma, COPDteststable, chronic. DVT prophylaxis: Heparin subcu Full code Dispo: Likely d/c to home with IV antibiotics, awaiting final recs I spent a total of 46 minutes minutes coordinating, documenting, and providing care for this patient excluding time spent in the performance of separately billed services. Admission and Anticipated Discharge Date Admission Date: March 30, 2024 Subjective Patient was seen and examined in room 379-2. Follow up rectal abscess. He feels well this a.m. He offers no acute concerns. His pain is controlled. He is ambulating when he can. He denies f/c/s, chest pain, sob, n/v/d. He is tolerating diet. Review of Systems Review of Systems: All systems reviewed & are unremarkable except as noted in HPI & below Physical Exam Physical Exam: Gen: WD/WN, NAD, A&O x3 HEENT: Normocephalic, atraumatic, conjunctivae moist, sclerae anicteric, mucous membranes moist. Lung: Clear to Auscultation bilaterally, no wheezes/rales/rhonchi Heart: Regular rate, regular rhythm, no murmurs, rubs, or gallops Abdomen: Soft, NT, ND +BS x 4 Extremities: No edema Skin: Warm, no rash, negative turgor. Results & Data Results & Data Vital Signs (Past 12 Hours) Vital Signs Temp Pulse Resp BP Pulse Ox O2 Del Method 04/03/24 07:49 36.4 C L 79 18 104/71 97 Room Air Medications Administered Current Inpatient Medications Acetaminophen (Acetaminophen 325 Mg Tab) 650 mg PO Q4H PRN PRN Reason: Pain or Fever Stop: 04/29/24 13:35 Al Hydrox/Mg Hydrox/Simethicone (Aluminum/Magnesium Susp 30 Ml Udc) 15 ml PO Q4H PRN PRN Reason: Dyspepsia Stop: 04/29/24 13:35 Last Admin: 04/02/24 18:05 Dose: 15 ml Heparin Sodium (Beef Lung) (Heparin 10 Unit/Ml 5 Ml Flush) 5 ml FLUSH PRN PRN PRN Reason: Flush Stop: 05/02/24 16:26 Last Admin: 04/02/24 21:30 Dose: 5 ml Heparin Sodium (Porcine) (Heparin Sod 5,000 Unit/0.5 Ml Vial) 5,000 units SQ Q12 WILLIAMS Stop: 04/29/24 20:59 Last Admin: 04/03/24 07:26 Dose: 5,000 units Piperacillin Sod/Tazobactam Sod (Zosyn) 4.5 gm in 100 mls @ 25 mls/hr IV Q8H [facility] Stop: 04/09/24 16:44 Last Infusion: 04/03/24 11:30 Dose: Infused Ketorolac Tromethamine (Ketorolac Tromethamine 15 Mg/Ml Vial) 15 mg IV Q6H PRN PRN Reason: Moderate Pain (Scale 4, 5, 6) Stop: 04/04/24 13:44 Last Admin: 04/01/24 23:43 Dose: 15 mg Magnesium Oxide (Magnesium Oxide 400 Mg Tab) 400 mg PO BID [facility] Stop: 04/30/24 11:59 Last Admin: 04/03/24 07:26 Dose: 400 mg Ondansetron HCl (Ondansetron Inj 2 Mg/Ml 2 Ml Vial) 4 mg IV Q6H PRN PRN Reason: Nausea Stop: 04/29/24 13:35 Oxycodone HCl (Oxycodone Hcl Ir 5 Mg Tab (Immediate Release)) 5 mg PO Q6H PRN PRN Reason: Severe Pain (Scale 7, 8, 9,10) Stop: 04/13/24 13:44 Last Admin: 04/03/24 08:13 Dose: 5 mg
[2024-04-04 07:34] LABS: Basophils # (auto) 0.06 K/uL (0.00-0.20); Basophils % (auto) 0.7 %; Eosinophils # (auto) 0.32 K/uL (0.00-0.50); Eosinophils % (auto) 3.9 %; Hematocrit (blood only) 45.8 % (42.0-52.0); Hemoglobin 15.4 g/dl (14.0-18.0); Immature Granulocytes # (auto) 0.24 K/uL (0.01-0.20); Lymphocytes # (auto) 1.48 K/uL (1.20-3.40); Lymphocytes % (auto) 18.2 %; Mean Corpuscular Hemoglobin 30.2 pg (25.0-34.0); Mean Corpuscular Hgb Conc 33.6 g/dL (32.0-36.0); Mean Corpuscular Volume 89.8 fL (80.0-100.0); Mean Platelet Volume 9.3 fL (9.4-12.4); Monocytes # (auto) 0.75 K/uL (0.11-0.59); Monocytes % (auto) 9.2 %; Neutrophils # (auto) 5.27 K/uL (1.40-6.50); Platelet Count 510 K/uL (130-400); RDW Coefficient of Variation 13.3 % (11.5-14.5); White Blood Count 8.12 K/ul (4.8-10.8)
[2024-04-04 08:01] LABS: Calcium 9.2 mg/dl (8.6-10.3); Creatinine Clr Calc Pharmacy 106.5 ml/min; Est GFR (African American) 105.6 ml/min; Est GFR (Non-African American) 91.1 ml/min; Potassium 4.7 mmol/L (3.5-5.1)
--- NOTE | 2024-04-04 10:08 | Discharge Summary ---
Discharge Summary Date of Service April 04, 2024 Principal Dx & Hospital Course #1 = Principal Diagnosis (1) Abscess of rectum: Plan Proctitis Rectal abscess Sepsis secondary to rectal infection Gen surg on board repeat CT with evidence of decrease in size of jason rectal abscess, 5.5 x 4.5 x 4.3cm continue IV zosyn - he will need outpt course for additional 2 weeks with colorectal follow up/establishment He will continue zosyn through 04/19 and will then need midline removed Other chronic medical conditions: Asthma, COPDteststable, chronic. DVT prophylaxis: Heparin subcu Full code Dispo: D/C with IV antibiotics today Notes For Next Care Provider Please obtain a CBC and CMP at Hospital follow up and please repeat it at the end of antibiotic therapy. Pt will need a CT scan abd/pelvis with IV contrast after completion of antibiotic therapy to monitor size of abscess. He needs a referral to colorectal surgery for definitive treatment. If he cannot be seen within 2 weeks of discharge [facility], Dr. Valencia within 2 weeks of discharge. Medication Changes From Visit Piperacillin-Tazobactam 4.5gm IV every 8 hours for 2 weeks, until 04/19/24. Florastor 250mg by mouth daily for 2 weeks while on antibiotic therapy. Oxycodone 5mg every 8 hours as needed for severe pain. It is recommended you use over the counter Tylenol, 500mg every 6 hours as needed for mild to moderate pain. Admission HPI Per Admitting Provider 43-year-old male with PMH of asthma, COPD, current tobacco abuse presented to the ED with complaint of progressive rectal pain and pressure. Patient reports having rectal pain since Tuesday, went to [place] [facility] on Tuesday and was discharged on Augmentin for rectal infection/abscess. Patient reports that the pain and pressure continued to worsen and hence presented to the ED. Patient denies febrile illness but has not moved bowel or gas since Tuesday. Patient denies sore throat or cough or chest pain or palpitation. Patient reports improvement in belly pain after pain medications at ED. Patient denies any pain or burning while passing urine, reports decreased appetite but denies nausea or vomiting. Patient reports smoking 1 packs a day for more than 30 years, reports drinking 4-6 beers a day, last drink was Tuesday. reports use of marijuana daily. Patient denies any chronic medications use at home, current medication is Augmentin that he was discharged with from recent ER visit for rectal infection. Full code Plan of care discussed with the patient and patient's significant other at bedside , both voiced understanding and were agreeable. Admission Exam Per Admitting Provider GENERAL: Alert and oriented x3. NAD, on RA. HEENT: No pallor, no icterus. Pupils equal, round and reactive to light. Oral mucosa moist. NECK: No JVD, no neck masses. HEART: S1 and S2 heard. Regular rate and rhythm. Tachycardia. No murmur, no gallop. RESPIRATORY SYSTEM: Normal AP diameter. No accessory muscle use. No wheezing, no crackles. ABDOMEN: Soft, bowel sounds present, nontender, no distention. CENTRAL NERVOUS SYSTEM: No facial droop. Speech is clear. Obeys simple commands. Moves extremities. EXTREMITIES: No edema, no erythema seen. Rectal exam: no erythema noted but tenderness on palpation. Discharge Exam Gen: WD/WN, NAD, A&O x3 HEENT: Normocephalic, atraumatic, conjunctivae moist, sclerae anicteric, mucous membranes moist. Lung: Clear to Auscultation bilaterally, no wheezes/rales/rhonchi Heart: Regular rate, regular rhythm, no murmurs, rubs, or gallops Abdomen: Soft, NT, ND +BS x 4 Extremities: No edema Skin: Warm, no rash, negative turgor. Updated Medication List Medication Instructions Recorded Confirmed Type omeprazole 20 mg capsule,delayed 20 mg PO DAILY 03/30/24 03/30/24 History release Saccharomyces boulardii 250 mg 250 mg PO DAILY #14 caps 04/04/24 Rx capsule (Florastor) oxycodone 5 mg tablet 5 mg PO Q8H PRN severe pain (scale 04/04/24 Rx score 7-10) #15 tabs piperacillin-tazobactam 4.5 gram 4.5 g IV Q8H 14 days 04/04/24 Rx intravenous solution Hospital Stay Data Consultations 03/30/24 13:03 Consult General Surgery Routine 03/30/24 13:07 ED Decision to Admit Stat Diagnostic Imagining Performed Abdomen/Pelvis CT 03/30/24 09:28 CT SCAN OF THE ABDOMEN AND PELVIS WITH IV CONTRAST CLINICAL HISTORY: Lower abdominal/rectal pain. COMPARISON STUDY: No priors. TECHNIQUE: Following the IV administration of 94 cc of Optiray 320, CT scan of the abdomen and pelvis is performed from the lung bases to the proximal femora. Images are reviewed in the axial, sagittal, and coronal planes. IV contrast was administered without complication. A dose lowering technique was utilized adhering to the principles of ALARA. CT DOSE: 1347.81 mGy.cm FINDINGS: Lung bases: The heart is normal in size and without pericardial effusion. The lung bases are clear. Liver: The contrast-enhanced liver is normal in size, contour, and attenuation. Fatty infiltration is seen adjacent to the falciform ligament. There is no intrahepatic biliary ductal dilatation. The hepatic veins and portal veins are patent. Gallbladder: Surgically absent and clips in the gallbladder fossa. Spleen: Normal in size and attenuation. Pancreas: Unremarkable. Adrenal glands: Unremarkable. Kidneys: The contrast enhanced kidneys are normal in size and without hydronephrosis. The kidneys enhance symmetrically. A 4 mm nonobstructing calculus is seen on the left. No right renal calculi are clearly identified on this contrast-enhanced examination and there is no ureteral stone. Abdominal vasculature: The abdominal aorta is normal in course and caliber noting mild atherosclerotic calcification. Bowel: No bowel obstruction is seen. The rectal wall is thickened with significant surrounding inflammation. There is apparent mucosal discontinuity seen posteriorly involving the lower rectum which is suspicious for perforation. A multiloculated gas and fluid containing collection posterior to the rectum measures 6.4 x 3.3 x 4.2 cm as seen on axial image #325. This closely approximates but does not extend through the levator musculature. The appendix is not visualized. Peritoneum: There is no intraperitoneal free air or abdominal ascites. There is a small fat-containing umbilical hernia. Lymphadenopathy: None. Pelvic viscera: The the bladder wall appears thickened. The prostate and seminal vesicles are normal as imaged. Skeletal structures: No lytic or blastic lesions are seen. IMPRESSION: 1. There is evidence of proctitis with a large posterior perirectal abscess as detailed above. 2. There is apparent mucosal discontinuity involving the posterior aspect of the lower rectum. Perforation is not excluded. 3. Bladder wall thickening is nonspecific and likely related to adjacent inflammation. Correlate with clinical findings and urinalysis. 4. Left-sided nephrolithiasis. 5. Additional findings as above. ACT 112: Negative or not required by law. Electronically signed by: Pepe Soler M.D. 03/30/2024 10:34 AM Abdomen/Pelvis CT 04/02/24 08:00 CT SCAN OF THE ABDOMEN AND PELVIS WITH IV CONTRAST CLINICAL HISTORY: Perirectal abscess. COMPARISON STUDY: Abdominal CT dated 03/30/2024 TECHNIQUE: Following the IV administration of 94 cc of Optiray 320, CT scan of the abdomen and pelvis is performed from the lung bases to the proximal femora. Images are reviewed in the axial, sagittal, and coronal planes. IV contrast was administered without complication. A dose lowering technique was utilized adhering to the principles of ALARA. CT DOSE: 1344.18 mGy.cm FINDINGS: Lung bases: The heart is normal in size and without pericardial effusion. The lung bases are clear noting bibasilar atelectasis. There is a small hiatal hernia. Liver: The contrast-enhanced liver is normal in size, contour, and attenuation. Fatty infiltration is seen adjacent to the falciform ligament. There is mild central intrahepatic biliary ductal dilatation. The hepatic veins and portal veins are patent. Gallbladder: Surgically absent noting clips in the gallbladder fossa. Spleen: Normal in size and attenuation. Pancreas: Unremarkable. Adrenal glands: Unremarkable. Kidneys: The contrast enhanced kidneys are normal in size and without hydronephrosis. The kidneys enhance symmetrically. A 4 mm nonobstructing calculus is seen on the left. No right renal calculi are clearly identified on this contrast-enhanced examination and there is no ureteral stone. Abdominal vasculature: The abdominal aorta is normal in course and caliber noting mild atherosclerotic calcification. Bowel: No bowel obstruction is identified. There is moderate colonic fecal retention. Again seen is significant rectal wall thickening with surrounding inflammation. There is apparent mucosal discontinuity seen posteriorly involving the lower rectum which remains suspicious for perforation. A multiloculated gas and fluid containing collection posterior to the rectum measures 5.5 x 4.5 x 4.3 cm as seen on axial image #328. This closely approximates but does not extend through the levator musculature. The appendix is not visualized. Peritoneum: There is no intraperitoneal free air or abdominal ascites. There is a small fat-containing umbilical hernia. Lymphadenopathy: None. Pelvic viscera: The bladder wall appears thickened with surrounding infiltration. The prostate and seminal vesicles are normal as imaged. Skeletal structures: No lytic or blastic lesions are seen. IMPRESSION: 1. Again seen is evidence of proctitis with a large posterior perirectal abscess as detailed above. The abscess has modestly decreased in size from 03/30/2024. 2. There is apparent mucosal discontinuity involving the posterior aspect of the lower rectum which appears to communicate with the collection. Rectal perforation is not excluded. 3. The bladder wall is thickened with surrounding infiltration. This is likely related to adjacent proctitis. Correlate with clinical findings and urinalysis. 4. Left-sided nephrolithiasis. 5. Additional findings as above. ACT 112: Negative or not required by law. Electronically signed by: Pepe Soler M.D. 04/02/2024 10:05 AM Pending Results Patient Have Any Pending Studies at Discharge: No Discharge Instructions Given to Patient (Per Discharging Provider) MEDICATION CHANGES: Piperacillin-Tazobactam 4.5gm IV every 8 hours for 2 weeks, until 04/19/24. Florastor 250mg by mouth daily for 2 weeks while on antibiotic therapy. Oxycodone 5mg every 8 hours as needed for severe pain. It is recommended you use over the counter Tylenol, 500mg every 6 hours as needed for mild to moderate pain. SUMMARY OF TEST RESULTS: You were admitted to hospital with a rectal abscess. You were seen and evaluated by general surgery who recommended you be evaluated by a colorectal surgeon. This will have to take place in the outpatient setting. You will need IV antibiotics for 2 weeks. Once this is complete you will need to have your Mid Line removed. PENDING TEST RESULTS: None RECOMMENDATIONS FOR FOLLOW-UP: Please follow up with your Primary Care Provider within 7 days of discharge. It is recommended that you have lab work at this appointment and at the completion of antibiotics. I recommend you have a CBC and CMP done to evaluate your blood counts, kidney and liver functions. You will need a referral to [place] or [facility]. Your primary care provider will need to arrange this referral. If you cannot be seen by [facility] within 2 weeks of discharge it is recommended you follow up with Dr. Valencia. Please call their office for an appointment, . Upon completion of antibiotics you need a repeat CT scan of abdomen/pelvis WITH IV contrast to further evaluate your abscess. Please complete antibiotics in their entirety. You will need to have your IV site removed upon completion of antibiotics. OTHER INSTRUCTIONS: Seek medical attention if you have: * temperature above 101 * chest pain or trouble breathing * abdominal pain, nausea, vomiting * diarrhea, dark stools or bloody stools * any unanswered questions or concerns Call 911 if symptoms are severe. Please take good care of yourself. It has been a pleasure taking care of you. Please take care of yourself. If you have any questions regarding your recent hospitalization please contact [facility] and request [facility] @ [phone]. Janet Dawkins PA-C Total Time Total Time Spent Total Time Spent (In Minutes): 35 minutes Supervising Physician Co-Signing Physician Notes Attending addendum: The patient was seen and examined in medical floor He has been feeling much better Rectal pain is decreased and he has been moving his bowel Denies any fever no chills He will be discharged this afternoon on IV antibiotic On examination Remains hemodynamically stable and is afebrile Physical examination remains unremarkable His labs, imaging studies and medications reviewed Rectal abscess with proctitis and presented with infection and sepsis Remains medically stable to be discharged on IV antibiotics to finish the course He will have appointment with the colorectal surgeon as an outpatient Agree with assessment plan as mentioned above by Janet Denton PAC and take the full responsibility. Total time spent was [address] Clara Lundberg
== END 2024-04-04 13:20 | disposition home health service (06) | DRG 872 ==
LOC: ED 08:58 → SUATTDRO 13:36 → EDINP 13:36 → 3N 15:55

== ENCOUNTER 2024-11-14 09:43 | Inpatient (IN) ==
[2024-11-14] MEDS: ALBUT/IPRATROP 3MG/0.5MG NEB 3 ML VIAL INH STA (10:14)
[2024-11-14] MEDS: FUROSEMIDE 40 MG/4 ML VIAL IV STA (10:14)
[2024-11-14 10:22] LABS: iSTAT Creatinine 1.1 mg/dl (0.6-1.3); iSTAT Ionized Calcium 1.1 mmol/l (1.12-1.32); iSTAT Potassium 4.4 mmol/L (3.3-5.0)
--- NOTE | 2024-11-14 10:36 | XRay Report ---
XR chest 2V PA/lateral CLINICAL HISTORY: Dyspnea COMPARISON STUDY: None FINDINGS: There is mild cardiomegaly with mild pulmonary vascular congestion. There is stranding opac ity in the lung bases with blunting of the costophrenic angles. No pneumothorax. IMPRESSION: 1. Mild CHF. 2. Trace pleural effusions. 3. Stranding opacity in the lung bases could represent atelectasis or early pneumonia. ACT 112: Negative or not required by law. Electronically signed by: David Azul M.D. 11/14/2024 10:34 AM
--- NOTE | 2024-11-14 10:47 | Emergency Department Note ---
History of Present Illness General Chief complaint: Respiratory Problems Stated complaint: PNEUMONIA - FILLING UP WITH FLUID Time Seen by Provider: 11/14/24 09:53 Source: patient Mode of arrival: ambulatory Limitations: no limitations History of Present Illness Patient is a 44-year-old male with history of asthma and GERD who presents with shortness of breath for 1 week. Symptoms are at rest and he feels like "there is fluid in his lungs". Recently seen in outside hospital and diagnosed with bilateral pneumonia. He has been on antibiotics without any improvement in his symptoms. No fevers, chills, body aches. He does have a nonproductive cough. He also notes a weight gain of 25 pounds in the past 2 weeks. This is unintentional and mostly secondary to fluid weight. Family history of CHF. Patient uses medical marijuana. Denies any other drug or alcohol use. No history of DVT/PE. No recent surgery or immobilization. Home Medications Medication Instructions Recorded Confirmed Type omeprazole 20 mg capsule,delayed 20 mg PO QAM 03/30/24 11/14/24 History release Medical Thc 1 unit inhalation UD PRN Anxiety 05/15/24 11/14/24 History albuterol sulfate 90 mcg/actuation 2 puff inhalation Q6H PRN asthma 05/15/24 11/14/24 History aerosol inhaler amoxicillin 875 mg-potassium 1 tab PO BID 11/14/24 11/14/24 History clavulanate 125 mg tablet Allergies Allergy/AdvReac Type Severity Reaction Status Date / Time No Known Allergies Allergy Verified 10/03/24 15:31 Past Med/Surg History Problem List (Updated 11/14/24 @ 12:03 by Luis Mccarthy MD) Congestive heart failure (Acute) Medical History (Updated 11/14/24 @ 12:03 by Luis Mccarthy MD) Chronic obstructive pulmonary disease Right inguinal pain mild GERD (gastroesophageal reflux disease) Asthma stable, rarely uses inhaler Abscess of rectum (03/2024) "Resolved" s/p [place] admission/abx treatment Surgical History (Updated 09/03/24 @ 09:48 by Janet Singleton RN) Hx of colonoscopy (09/03/24) Colonoscopy - Macarena Valencia DO Poor prep H/O right inguinal hernia repair (05/21/24) Robotic Assisted Laparoscopic Right Inguinal Hernia Repair with Mesh(Right) - Macarena Valencia DO History of laparoscopic cholecystectomy History of tooth extraction History of surgery on arm (1994) Left arm (due to accident), tendons repair Social History Smoking Status: Unknown if ever smoked Tobacco Type: E-cigarettes / Vaping Second Hand Exposure: No; Do You Dip or Chew Tobacco: No; Hx Alcohol Use: Yes Alcohol type: beer Hx Substance Use: No Preferred Language: Moroccan Communication Ability: Effective Pediatric 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 Physical Exam Vital Signs Vital Signs - 24 hr 11/14/24 09:50 11/14/24 10:01 11/14/24 10:02 Temperature 36.6 C Temperature Source Temporal Artery Scan Pulse Rate 127 H Pulse Rate [Apical] Respiratory Rate 28 H Respiratory Effort / Characteristics Short of Breath Spontaneous Short of Breath Tripoding Respiratory Depth Respiratory Pattern Tachypnea Blood Pressure 124/87 Blood Pressure [Left Arm] Blood Pressure Mean 99 Blood Pressure Mean [Left Arm] Pulse Oximetry 98 99 Oxygen Delivery Method Room Air Room Air Room Air Sepsis Recent Fever Within 48 Hours No Sepsis New/Unexplained Change in Mental Status No Sepsis Action Taken by Nursing No Action Required 11/14/24 10:20 11/14/24 10:20 11/14/24 10:20 Temperature Temperature Source Pulse Rate 111 H Pulse Rate [Apical] 111 H Respiratory Rate 16 Respiratory Effort / Characteristics Non-Labored Spontaneous Respiratory Depth Normal Respiratory Pattern Blood Pressure Blood Pressure [Left Arm] 131/92 Blood Pressure Mean Blood Pressure Mean [Left Arm] 105 Pulse Oximetry 100 Oxygen Delivery Method Room Air Room Air Sepsis Recent Fever Within 48 Hours Sepsis New/Unexplained Change in Mental Status Sepsis Action Taken by Nursing see below Constitutional WD/WN, vitals as above Respiratory + labored breathing, + uses accessory muscles and + tachypneic Auscultation: + rales Cardiovascular Rate/Rhythm: + tachycardic Heart Sounds: normal S1 and normal S2 Extremities: + pedal edema and + edema; no calf tenderness Musculoskeletal no cyanosis or clubbing, extremities motor strength 5/5 Course Administered Medications Discontinued Medications Albuterol (Albut/Ipratrop 3mg/0.5mg Neb 3 Ml Vial) 3 ml INH NOW STA Stop: 11/14/24 10:03 Last Admin: 11/14/24 10:14 Dose: 3 ml Documented By: Furosemide (Furosemide 40 Mg/4 Ml Vial) 40 mg IV NOW STA Stop: 11/14/24 10:03 Last Admin: 11/14/24 10:14 Dose: 40 mg Documented By: Medical Decision Making Differential Diagnosis CHF exacerbation, pneumonia, ACS, PE, viral illness Medical Records Attestation: I reviewed the patient's medical records. Home Medications Current Medication List: was personally reviewed by me Laboratory Data Attestation: I reviewed the patient's lab results. 11/14/24 10:00 11/14/24 10:00 Lab Results 11/14/24 11/14/24 11/14/24 Range/Units 10:00 10:05 10:11 WBC 10.34 (4.8-10.8) K/ul RBC 5.08 (4.70-6.10) M/uL Hgb 15.5 (14.0-18.0) g/dl POC Hgb 17.0 (14.0-18.0) g/dl Hct 48.0 (42.0-52.0) % POC Hct 50 (42-52) % MCV 94.5 (80.0-100.0) fL MCH 30.5 (25.0-34.0) pg MCHC 32.3 (32.0-36.0) g/dL RDW Std Deviation 50.4 H (36.4-46.3) fL RDW Coeff of [place] 14.5 (11.5-14.5) % Plt Count 259 (130-400) K/uL MPV 11.2 (9.4-12.4) fL Immature Gran % (Auto) 0.4 % Neut % (Auto) 80.2 % Lymph % (Auto) 12.2 % [place] % (Auto) 6.0 % Eos % (Auto) 0.9 % Baso % (Auto) 0.3 % Neut # (Auto) 8.30 H (1.40-6.50) K/uL Lymph # (Auto) 1.26 (1.20-3.40) K/uL [place] # (Auto) 0.62 H (0.11-0.59) K/uL Eos # (Auto) 0.09 (0.00-0.50) K/uL Baso # (Auto) 0.03 (0.00-0.20) K/uL Immature Gran # (Auto) 0.04 (0.01-0.20) K/uL POC Sodium 136 (135-144) mmol/L Sodium 137 (136-145) mmol/L POC Potassium 4.4 (3.3-5.0) mmol/L Potassium 4.5 (3.5-5.1) mmol/L POC Chloride 100 L (101-112) mmol/L Chloride 102 (98-107) mmol/L Carbon Dioxide 29 (21-32) mmol/L POC Total CO2 24 (24-31) mmol/L Anion Gap 6 (3-11) POC Anion Gap 18.0 (16-25) mmol/L POC BUN 11 (7-18) mg/dl BUN 12 (6-23) mg/dl Creatinine 0.99 (0.6-1.4) mg/dl POC Creatinine 1.1 (0.6-1.3) mg/dl Est Cr Clr Drug Dosing 123.6 ml/min eGFR 95.74 BUN/Creatinine Ratio 12.1 (10-20) Glucose 110 H (70-99(Fasting)) mg/dl POC Glucose (other) 112 H (70-99) mg/dl Calcium 9.1 (8.6-10.3) mg/dl POC Ioniz Calcium Jay 1.10 L (1.12-1.32) mmol/l Total Bilirubin 1.1 H (0.2-1.0) mg/dl AST 89 H (13-39) U/L ALT 393 H (7-52) U/L Alkaline Phosphatase 83 (34-104) U/L Troponin I High Sens 14.8 (0-20) pg/ml B-Natriuretic Peptide 1772 H (0-100) pg/ml Total Protein 6.2 (6.0-8.3) gm/dl Albumin 3.9 (3.4-5.0) gm/dl Globulin 2.3 L (2.5-4.0) gm/dl Albumin/Globulin Ratio 1.7 (0.9-2) Adenovirus (PCR) Not Detected (NotDetected) B. pertussis DNA (PCR) Not Detected (NotDetected) B.parapertussis DNA PCR Not Detected (NotDetected) C. pneumoniae DNA (PCR) Not Detected (NotDetected) Coronavirus OC43 (PCR) Not Detected (NotDetected) Coronavirus HKU1 (PCR) Not Detected (NotDetected) Coronavirus 229E (PCR) Not Detected (NotDetected) SARS-CoV-2 (PCR) Not Detected (NotDetected) Coronavirus NL63 (PCR) Not Detected (NotDetected) Human Metapneumovir PCR Not Detected (NotDetected) Influenza Type A (PCR) Not Detected (NotDetected) Influenza Type B (PCR) Not Detected (NotDetected) M. pneumoniae (PCR) Not Detected (NotDetected) Parainfluenza 1 (PCR) Not Detected (NotDetected) Parainfluenza 2 (PCR) Not Detected (NotDetected) Parainfluenza 3 (PCR) Not Detected (NotDetected) Parainfluenza 4 (PCR) Not Detected (NotDetected) RSV (PCR) Not Detected (NotDetected) Entero/Rhino (PCR) Not Detected (NotDetected) Imaging Data Attestation: I personally reviewed and interpreted this imaging study as follows: My Impression: mild CHF, trace pleural effusions Radiologist's Impression: Chest X-Ray 11/14/24 10:02 XR chest 2V PA/lateral CLINICAL HISTORY: Dyspnea COMPARISON STUDY: None FINDINGS: There is mild cardiomegaly with mild pulmonary vascular congestion. There is stranding opacity in the lung bases with blunting of the costophrenic angles. No pneumothorax. IMPRESSION: 1. Mild CHF. 2. Trace pleural effusions. 3. Stranding opacity in the lung bases could represent atelectasis or early pneumonia. ACT 112: Negative or not required by law. Electronically signed by: David Azul M.D. 11/14/2024 10:34 AM ECG Data Attestation: I personally reviewed and interpreted this ECG as follows: Indication: + SOB/dyspnea Rate (beats per minute): 125 Rhythm: + sinus tachycardia ECG Intervals/blocks: + Normal QRS, + Normal IA and + Normal QT-c ECG Rogers: + Normal ECG ST segments: + Normal ST segments Comparison ECG Date: no prior available Blood Pressure Blood Pressure Findings: Normal blood pressure MDM Narrative Patient is a 44-year-old male who presents with shortness of breath and fluid overload. On arrival here in the emergency room he is slightly tachycardic however saturation is 100% on room air. Edema noted to the lower extremities. I did review his radiology report from recent outpatient hospital visit 2 days prior. CTA was ordered at that time which showed no evidence of PE but pleural effusions. And pulmonary edema were noted. EKG today shows no ischemic changes. Troponin negative. BNP greater than 1700 consistent with new onset CHF with exacerbation. 40 mg of Lasix was given here in the ED. No white count or concern for underlying infection at this time. Will hold on antibiotics and defer to inpatient team. Admitted to hospitalist service for management of new onset CHF with exacerbation. Impression & Plan Congestive heart failure Admit Discharge Plan Visit Data Chief Complaint: Respiratory Problems Stated Complaint: PNEUMONIA - FILLING UP WITH FLUID ED Provider: Luis Mccarthy Discharge Problem: Congestive heart failure Forms Stand Alone Forms: My [facility] [employer] Prescriptions Prescriptions: No Action albuterol sulfate 90 mcg/actuation HFA aerosol inhaler 2 puff inhalation Q6H PRN (Reason: asthma) Rx Instructions: 11/14-no fill histor. unable to verify omeprazole 20 mg capsule,delayed release(DR/EC) 20 mg PO QAM Rx Instructions: filled 09/06 90 day supply Medical Thc 1 unit 1 unit inhalation UD PRN (Reason: Anxiety) Rx Instructions: 11/14-unable to verify amoxicillin-pot clavulanate 875-125 mg tablet 1 tab PO BID Rx Instructions: filled 11/12/24 10 day supply Referrals Referrals: Will Holland DO [Primary Care Provider] -
[2024-11-14 10:48] LABS: Basophils # (auto) 0.03 K/uL (0.00-0.20); Basophils % (auto) 0.3 %; Eosinophils # (auto) 0.09 K/uL (0.00-0.50); Eosinophils % (auto) 0.9 %; Hemoglobin 15.5 g/dl (14.0-18.0); Immature Granulocytes # (auto) 0.04 K/uL (0.01-0.20); Immature Granulocytes % (auto) 0.4 %; Lymphocytes # (auto) 1.26 K/uL (1.20-3.40); Lymphocytes % (auto) 12.2 %; Mean Corpuscular Hemoglobin 30.5 pg (25.0-34.0); Mean Corpuscular Hgb Conc 32.3 g/dL (32.0-36.0); Mean Corpuscular Volume 94.5 fL (80.0-100.0); Mean Platelet Volume 11.2 fL (9.4-12.4); Monocytes # (auto) 0.62 K/uL (0.11-0.59); Neutrophils % (auto) 80.2 %; Platelet Count 259 K/uL (130-400); RDW Coefficient of Variation 14.5 % (11.5-14.5); RDW Standard Deviation 50.4 fL (36.4-46.3); Red Blood Count 5.08 M/uL (4.70-6.10); White Blood Count 10.34 K/ul (4.8-10.8)
[2024-11-14 11:02] LABS: Albumin Globulin Ratio 1.7 (0.9-2); Albumin Level 3.9 gm/dl (3.4-5.0); BUN Creatinine Ratio 12.1 (10-20); Bilirubin,Total 1.1 mg/dl (0.2-1.0); Calcium 9.1 mg/dl (8.6-10.3); Creatinine Clr Calc Pharmacy 123.6 ml/min; Globulin 2.3 gm/dl (2.5-4.0); Potassium 4.5 mmol/L (3.5-5.1); Total Protein 6.2 gm/dl (6.0-8.3)
[2024-11-14 11:03] LABS: Troponin I High Sensitivity 14.8 pg/ml (0-20)
[2024-11-14 11:12] LABS: Adenovirus PCR Not Detected (NotDetected); Bordetella parapertussis PCR Not Detected (NotDetected); Bordetella pertussis PCR Not Detected (NotDetected); Chlamydia pneumoniae PCR Not Detected (NotDetected); Coronavirus 229E PCR Not Detected (NotDetected); Coronavirus CoV-2 (COVID19)PCR Not Detected (NotDetected); Coronavirus HKU1 PCR Not Detected (NotDetected); Coronavirus NL63 PCR Not Detected (NotDetected); Coronavirus OC43PCR Not Detected (NotDetected); Human Metapneumovirus PCR Not Detected (NotDetected); Influenza A PCR Not Detected (NotDetected); Influenza B PCR Not Detected (NotDetected); Mycoplasma pneumoniae PCR Not Detected (NotDetected); Parainfluenza Virus 1 PCR Not Detected (NotDetected); Parainfluenza Virus 2 PCR Not Detected (NotDetected); Parainfluenza Virus 3 PCR Not Detected (NotDetected); Parainfluenza Virus 4 PCR Not Detected (NotDetected); Respiratory Syncytial VirusPCR Not Detected (NotDetected); Rhinovirus/Enterovirus PCR Not Detected (NotDetected)
[2024-11-14] MEDS ORDERED: POLYETHYLENE (MIRALAX) 17 GM PACK PO PRN (12:03)
[2024-11-14] MEDS ORDERED: ALUMINUM/MAGNESIUM SUSP 30 ML UDC PO PRN (12:03)
[2024-11-14] MEDS ORDERED: MAGNESIUM HYDROXIDE SUSP 30 ML UDC PO PRN (12:03)
--- NOTE | 2024-11-14 12:19 | History & Physical Report ---
Date of Service November 14, 2024 Assessment & Plan (1) Congestive heart failure: Plan Likely acute heart failure, unspecified type Patient presents with progressive shortness of breath for about 10 days, 25 pound weight gain in the last 13 days [employer]. Admitting chest imaging with congestion, cardiomegaly and pleural effusion. Recent CTA chest in [place] w/ no PE, had b/l pl effusion. On exam, patient with crackles bilaterally, right basal breath sounds more decreased than left. Pt reported improvement in his chest discomfort w/ a dose of lasix in the ED. BNP elevated, WBC WNL, patient with no fever, cough with clear sputum since whole 10 days prior to arrival per patient. Will get procal. Will hold on any further antibiotic, monitor off antibiotic, continue to diurese, will get echo, monitor replete electrolytes, cardiology consult - tiger texted. I's and O's, telemetry monitoring, heart failure education. Will get TSH, A1c, Lipid profile. Elevated random glucose: get A1c. History of asthma: Not wheezing, stable, continue home inhalers. History of GERD: Continue home omeprazole DVT prophylaxis: Lovenox Full code History of Present Illness Chief Complaint: Progressive shortness of breath, weight gain Primary Care Provider: Will Holland DO 43-year-old male with PMH of asthma, rectal abscess, GERD presented to the ED with complaint of progressive shortness of breath and weight gain. 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 Patient reports going to 2 [facility] cares few days apart and from the 2nd one he was referred to [place] ED where he was diagnosed with pneumonia and prescribed antibiotic which he took for 2 days worth but he continued to get short of breath and presented to our ED. Patient reports cough with clear sputum for whole duration of symptoms, denies fever or sore throat. Patient had transient chest discomfort today morning which resolved on its own, denies any chest pain prior to that. Patient denies any belly pain/diarrhea/nausea/vomiting. Patient reports moving bowel daily but feels constipated. Patient reports being able to eat okay and denies any pain or burning with passing urine. Patient reports quitting smoking about 6 months ago, smoked an average of 1 packs a day for about 20 years. Patient reports not drinking any alcohol products in the last 1 week, generally drinks 2-4 beer a week. Patient denies any recreational drug use but reports having medical cannabis. Medications reviewed with the patient at bedside. Plan of care discussed with the patient in detail, he voiced understanding and was agreeable. Full code as per my discussion with the patient. Allergies Allergy/AdvReac Type Severity Reaction Status Date / Time No Known Allergies Allergy Verified 10/03/24 15:31 Home Medications Medication Instructions Recorded Confirmed Type omeprazole 20 mg capsule,delayed 20 mg PO QAM 03/30/24 11/14/24 History release Medical Thc 1 unit inhalation UD PRN Anxiety 05/15/24 11/14/24 History albuterol sulfate 90 mcg/actuation 2 puff inhalation Q6H PRN asthma 05/15/24 11/14/24 History aerosol inhaler amoxicillin 875 mg-potassium 1 tab PO BID 11/14/24 11/14/24 History clavulanate 125 mg tablet Past Med/Surg History Problem List (Updated 11/14/24 @ 12:03 by Luis Mccarthy MD) Congestive heart failure (Acute) Medical History (Updated 11/14/24 @ 12:03 by Luis Mccarthy MD) Chronic obstructive pulmonary disease Right inguinal pain mild GERD (gastroesophageal reflux disease) Asthma stable, rarely uses inhaler Abscess of rectum (03/2024) "Resolved" s/p [place] admission/abx treatment Surgical History (Updated 09/03/24 @ 09:48 by Janet Singleton RN) Hx of colonoscopy (09/03/24) Colonoscopy - Macarena Valencia DO Poor prep H/O right inguinal hernia repair (05/21/24) Robotic Assisted Laparoscopic Right Inguinal Hernia Repair with Mesh(Right) - Macarena Valencia DO History of laparoscopic cholecystectomy History of tooth extraction History of surgery on arm (1994) Left arm (due to accident), tendons repair Social History Smoking Status: Unknown if ever smoked Tobacco Type: E-cigarettes / Vaping Second Hand Exposure: No; Do You Dip or Chew Tobacco: No; Hx Alcohol Use: Yes Alcohol type: beer Hx Substance Use: No Preferred Language: Algerian Communication Ability: Effective Legal Aide Required: No Beliefs That Will Affect Care: None Current Living Situation: Family Feels Safe at Home: Yes Assistive Devices: Contacts, Denture - Upper, Denture - Lower and Glasses Review of Systems Review of Systems: Negative otherwise mentioned in HPI. Physical Exam Physical Exam: GENERAL: Alert and oriented x3. NAD, on RA. HEENT: No pallor, no icterus. Pupils equal, round and reactive to light. Oral mucosa moist. NECK: No JVD, no neck masses. HEART: S1 and S2 heard. Regular rate and rhythm. HR in 100s. No murmur, no gallop. RESPIRATORY SYSTEM: Normal AP diameter. No accessory muscle use. No wheezing, b/l crackles, Rt base > left base decreased breath sounds. ABDOMEN: Soft, bowel sounds present, nontender, + distention. CENTRAL NERVOUS SYSTEM: No facial droop. Speech is clear. Obeys simple commands. Moves extremities. EXTREMITIES: 12+ ble edema, no erythema seen. Results & Data Results & Data Vital Signs (Past 12 Hours) Vital Signs Temp Pulse Pulse Resp BP BP Pulse Ox 11/14/24 10:20 111 H 11/14/24 10:20 11/14/24 10:20 111 H 16 131/92 100 11/14/24 10:02 99 11/14/24 10:01 11/14/24 09:50 36.6 C 127 H 28 H 124/87 98 O2 Del Method 11/14/24 10:20 11/14/24 10:20 Room Air 11/14/24 10:20 Room Air 11/14/24 10:02 Room Air 11/14/24 10:01 Room Air 11/14/24 09:50 Room Air Code Status & VTE Plan VTE Prophylaxis Plan VTE Prophylaxis will be ordered: Yes
[2024-11-14] MEDS: ENOXAPARIN INJ 40 MG/0.4 ML SYR SQ SCH (12:27)
[2024-11-14] MEDS: MAGNESIUM SULFATE / D5W 1 GM/100 ML BAG IV ONE (12:27)
--- NOTE | 2024-11-14 13:02 | Cardiology Consultation ---
Date of Consultation November 14, 2024 Assessment & Plan (1) Heart failure, systolic, with acute decompensation: (2) NYHA Class IV cardiovascular function: (3) Abnormal EKG: Plan 44-year-old male presenting to [facility] ER on November 14, 2024 with signs and symptoms of new onset acute decompensated systolic congestive heart failure. NYHA Class IV dyspnea Volume status: Hypervolemic EKG with narrow QRS duration Patient maintaining sinus rhythm, occasional ventricular ectopy observed Resting echocardiography pending Recommendations: IV diuresis, furosemide 40 mg daily for now Evaluate for underlying etiology, ? viral Implement guideline directed medical therapy, adding spironolactone 12.5 mg/day and metoprolol succinate 12.5 mg/day for now, ARB as blood pressure permits Diagnostic cardiac catheterization once compensated from a volume status Maintain telemetry Outpatient [facility] Heart Failure [facility] Clinic consultation for assistance with titration of GDMT Outpatient Genetics referral Supervising Physician Co-Signing Physician Notes Patient seen and examined on date of admission full assessment and plan as outlined above 44-year-old male presents with newly diagnosed dilated cardiomyopathy with decompensated congestive heart failure plan as outlined. Maintain telemetry History of Present Illness Reason for Consultation: Acute congestive heart failure Requesting Physician: Dr. Manolo Castrejon [facility] of Present Illness Andriy Maciel is a 44-year-old male who was in his usual state of health until approximately 10 days ago when he developed shortness of breath. Patient notes initially presenting to urgent care in [place] 8 days ago where he was told everything was okay. The next day he went to another urgent care and was referred to the [facility] emergency room where he was diagnosed with possible pneumonia. Unfortunately, patient experience worsening issues in cluding shortness of breath, cough, abdominal bloating, orthopnea/PND, lower extremity peripheral edema, and abrupt weight gain. Notes 25 pound weight gain over 13-day period of time. This morning, due to worsening symptoms, patient attempted to drive to the [facility] ER. On the way he notes that his "heart felt weird," needing to loin puller. He ultimately was able to make it to a relatives house who drove him to the ER for further evaluation and treatment. EKG on presentation revealed sinus tachycardia with a ventricular rate of 125 bpm with possible left atrial enlargement, low voltage QRS, poor R wave progression across anterior precordial leads, lateral STT wave abnormality. Chest x-ray interpreted by radiologist revealing mild congestive heart failure with trace pleural effusions, stranding opacity in the lung bases possibly atelectasis versus early pneumonia. In the ER patient received 40 mg of IV furosemide with improvement in presenting symptoms, increased urination. No chest pain or discomfort. No palpitations. No dizziness, near syncope, or syncope. No fevers, chills, or night sweats. No productive cough. No reported melena, hematochezia, or hematuria. Past Medical and Surgical History: Asthma Emphysema Chart history of GERD Rectal abscess within the last year Inguinal hernia repair Cholecystectomy Left arm surgery following accident Social History: History of IV drug use, sober x 7 years. Prior smoker, 1 pack/day x 20 years. Chews smokeless tobacco currently. Smokes medical marijuana. Single. No children. Employment: [employer]. Family History: Positive for congestive heart failure in mother and father, paternal grandfather. Allergies Allergy/AdvReac Type Severity Reaction Status Date / Time No Known Allergies Allergy Verified 10/03/24 15:31 Home Medications Medication Instructions Recorded Confirmed Type omeprazole 20 mg capsule,delayed 20 mg PO QAM 03/30/24 11/14/24 History release Medical Thc 1 unit inhalation UD PRN Anxiety 05/15/24 11/14/24 History albuterol sulfate 90 mcg/actuation 2 puff inhalation Q6H PRN asthma 05/15/24 11/14/24 History aerosol inhaler amoxicillin 875 mg-potassium 1 tab PO BID 11/14/24 11/14/24 History clavulanate 125 mg tablet Patient History Medical History Chronic obstructive pulmonary disease Right inguinal pain mild GERD (gastroesophageal reflux disease) Asthma stable, rarely uses inhaler Abscess of rectum (03/2024) "Resolved" s/p [place] admission/abx treatment Surgical History Hx of colonoscopy (09/03/24) Colonoscopy - Macarena Valencia DO Poor prep H/O right inguinal hernia repair (05/21/24) Robotic Assisted Laparoscopic Right Inguinal Hernia Repair with Mesh(Right) - Kennita L. Sanchez-Mati, DO History of laparoscopic cholecystectomy History of tooth extraction History of surgery on arm (1994) Left arm (due to accident), tendons repair Social History Smoking Status: Former smoker Tobacco Type: Cigarettes and Smokeless Tobacco (Dip or Chew) Second Hand Exposure: No; Do You Dip or Chew Tobacco: Yes; Tobacco Cessation Education Requested by Patient: Yes Hx Alcohol Use: Yes Alcohol type: beer Hx Substance Use: Yes Last Used Substance: Just Prior to Arrival Last Used Substance Other:: medical marijuana daily (Advised) Substance Use Type Other:: medical marijuana-advised Preferred Language: Kuwaiti Communication Ability: Effective 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 HEENT: Glasses. No history of cataracts, macular degeneration, or glaucoma. No history of amaurosis fugax. Pulmonary: Asthma.? Emphysema. No history of PE. Cardiac: No prior cardiac history. GI/Abd: Mild constipation issues of late. GERD. No dysphagia. Rectal abscess within the last year. Status post cholecystectomy No kidney problems. No liver problems. No history of pancreatic issues. Vascular: No history of carotid artery disease, AAA, or lower extremity claudication/PAD. Hematologic: No coagulation disorder, anemia, or abnormal bleeding. Musculoskeletal: Negative. Skin: No rash. No tick bites. Neurologic: No history of TIA/CVA. No history of seizure. Endocrine: No history of diabetes or thyroid issues. Complete Review of Systems is as stated above, negative, or noncontributory Physical Exam Physical Exam: General: Conversational dyspnea, tachypnea HENT: Normocephalic. Atraumatic. Eyes: PER. Conjunctiva pink, sclera clear. Neck: JVD. Heart: Somewhat distant heart sounds. Regular, 100 bpm. No murmur appreciated. PMI displaced. Lungs: Diminished breath sounds. No wheeze. Abdomen: +BS. Soft. Nontender. No masses or organomegaly. Extremities: Mild edema. No clubbing. No cyanosis. Limited neurological examination is without focal deficits. Pulses: Posterior tibial=2/4. Results & Data Vital Signs (Past 12 Hours) Vital Signs Temp Pulse Pulse Resp BP BP Pulse Ox 11/14/24 11:15 116 H 23 118/86 96 11/14/24 11:00 109 H 20 105/82 94 11/14/24 10:45 21 119/94 96 11/14/24 10:20 111 H 11/14/24 10:20 11/14/24 10:20 111 H 16 131/92 100 11/14/24 10:02 99 11/14/24 10:01 11/14/24 10:00 113 H 20 129/87 100 11/14/24 09:50 36.6 C 127 H 28 H 124/87 98 O2 Del Method 11/14/24 11:15 Room Air 11/14/24 11:00 Room Air 11/14/24 10:45 Room Air 11/14/24 10:20 11/14/24 10:20 Room Air 11/14/24 10:20 Room Air 11/14/24 10:02 Room Air 11/14/24 10:01 Room Air 11/14/24 10:00 Room Air 11/14/24 09:50 Room Air Laboratory Results Cardiac Enzymes 11/14/24 Range/Units 10:00 AST 89 H (13-39) U/L Troponin I High Sens 14.8 (0-20) pg/ml B-Natriuretic Peptide 1772 H (0-100) pg/ml Coagulation 11/14/24 Range/Units 10:00 B-Natriuretic Peptide 1772 H (0-100) pg/ml CBC 11/14/24 Range/Units 10:00 WBC 10.34 (4.8-10.8) K/ul RBC 5.08 (4.70-6.10) M/uL Hgb 15.5 (14.0-18.0) g/dl Hct 48.0 (42.0-52.0) % Plt Count 259 (130-400) K/uL Neut # (Auto) 8.30 H (1.40-6.50) K/uL Lymph # (Auto) 1.26 (1.20-3.40) K/uL [place] # (Auto) 0.62 H (0.11-0.59) K/uL Eos # (Auto) 0.09 (0.00-0.50) K/uL Baso # (Auto) 0.03 (0.00-0.20) K/uL Comprehensive Metabolic Panel 11/14/24 Range/Units 10:00 Sodium 137 (136-145) mmol/L Potassium 4.5 (3.5-5.1) mmol/L Chloride 102 (98-107) mmol/L Carbon Dioxide 29 (21-32) mmol/L BUN 12 (6-23) mg/dl Creatinine 0.99 (0.6-1.4) mg/dl Glucose 110 H (70-99(Fasting)) mg/dl Calcium 9.1 (8.6-10.3) mg/dl AST 89 H (13-39) U/L ALT 393 H (7-52) U/L Alkaline Phosphatase 83 (34-104) U/L Total Protein 6.2 (6.0-8.3) gm/dl Albumin 3.9 (3.4-5.0) gm/dl Intake and Output 11/13/24 11/14/24 11/14/24 22:59 06:59 14:59 Output Total 250 / 250 Balance -250 / -250 Output: Urine 250 / 250 Other: # Unmeasured Voids 3 Weight 112.04 kg Weight Measurement Method Built in [facility] Patient Weight 11/15/24 06:59 Weight 112.04 kg Diagnostic Findings Telemetry: Sinus/sinus tachycardia, with occasional ventricular ectopy.
[2024-11-14] MEDS ORDERED: ALBUTEROL HFA 8 GM INHALER INH PRN (13:29)
[2024-11-14 13:35] LABS: Thyroid Stimulating Hormone 2.488 uIu/ml (0.300-4.500)
[2024-11-14 15:07] LABS: Ferritin 134.9 ng/ml (8-388)
[2024-11-14] MEDS: SPIRONOLACTONE 12.5 MG TAB PO SCH (15:20)
[2024-11-14] MEDS: FUROSEMIDE INJ 20 MG/2 ML VIAL IV ONE (16:32)
[2024-11-14] MEDS: METOPROLOL SUCC 25MG EXT REL TAB PO SCH (20:19)
--- NOTE | 2024-11-15 05:52 | Electrocardiogram Report ---
Test Reason : Blood Pressure : */* mmHG Vent. Rate : 125 BPM Atrial Rate : 125 BPM P-R Int : 138 ms QRS Dur : 76 ms QT Int : 314 ms P-R-T Axes : 83 28 13 degrees QTcB Int : 453 ms Sinus tachycardia Low voltage QRS Cannot rule out Anterior infarct , age undetermined Nonspecific T wave abnormality Abnormal ECG When compared with ECG of 30-Mar-2024 10:22, Minimal criteria for Anterior infarct are now Present Nonspecific T wave abnormality now evident in Inferior leads Confirmed by Stephen Moyer ([id number]) on 11/15/2024 5:51:49 AM Referred By: REFERRED SELF Confirmed By: Stephen Moyer
[2024-11-15 06:43] LABS: Hematocrit (blood only) 45.1 % (42.0-52.0); Hemoglobin 14.9 g/dl (14.0-18.0); Mean Corpuscular Hemoglobin 30.7 pg (25.0-34.0); Mean Platelet Volume 11.1 fL (9.4-12.4); Platelet Count 241 K/uL (130-400); RDW Coefficient of Variation 14.4 % (11.5-14.5); RDW Standard Deviation 49.2 fL (36.4-46.3); Red Blood Count 4.85 M/uL (4.70-6.10); White Blood Count 11.68 K/ul (4.8-10.8)
[2024-11-15 07:13] LABS: BUN Creatinine Ratio 13.6 (10-20); Calcium 8.5 mg/dl (8.6-10.3); Chol HDL Ratio 2.9 (0-5); Creatinine Clr Calc Pharmacy 100.5 ml/min; Phosphorus 3.7 mg/dl (2.5-4.9); Potassium 4.5 mmol/L (3.5-5.1)
[2024-11-15 07:31] LABS: Estimated Average Glucose 108 mg/dl; Hemoglobin A1C 5.4 % (4.5-5.6)
[2024-11-15] MEDS: PANTOprazole 40 MG TAB PO SCH (09:32)
[2024-11-15] MEDS: FUROSEMIDE 40 MG/4 ML VIAL IV SCH (09:33)
--- NOTE | 2024-11-15 10:38 | Cardiology Progress Note ---
Date of Service November 15, 2024 Assessment & Plan (1) Heart failure, systolic, with acute decompensation: (2) NYHA Class IV cardiovascular function: (3) Abnormal EKG: Plan 44-year-old male presenting to [facility] ER on November 14, 2024 with signs and symptoms of acute decompensated heart failure. Resting echocardiography with moderately dilated left ventricle with severe global hypokinesis, severely reduced LV systolic function, EF 15 to 20%, with mild to moderate mitral regurgitation NYHA Class IV Abnormal EKG, with narrow QRS duration Maintaining sinus rhythm, occasional ventricular ectopy and nonsustained ventricular tachycardia in the early AM hours Volume status: Improving hypervolemia Recommendations: * Continue IV diuresis, furosemide 40 mg daily + an additional dosing this afternoon * Increase metoprolol succinate to 25 mg twice a day * Continue spironolactone * Hold off on ARB versus ARNI and SGLT2 Inhibitor therapy for now * Maintain telemetry * Continue evaluation for underlying etiology * Diagnostic cardiac catheterization once compensated from a volume status * NPO after midnight * Wearable defibrillator briefly discussed today. * Outpatient genetic testing, evaluation for CHASE, and MTM Clinic consult for assistance with titration of GDMT Admission and Anticipated Discharge Date Admission Date: November 14, 2024 Supervising Physician Co-Signing Physician Notes Patient seen and examined, chart, medications, telemetry reviewed. Full assessment plan as by advanced provider above. Care and management discussed and personally endorsed 44-year-old male with newly diagnosed dilated cardiomyopathy, decompensated systolic heart failure with severe LV dysfunction plan as outlined. Patient has improved symptomatically since diuresis ultimately goal gradual institution of GDMT Subjective Patient seen and examined. Chart, medications, telemetry reviewed. Notes "labored and shallow breathing around 4 to 5 AM, still way better than before I came in." Telemetry: Sinus tachycardia 104 bpm with occasional PVCs, 1 7 beat run of vent ricular tachycardia at 5:19 AM Review of Systems Review of Systems: See above, and initial consultation dated November 14, 2024 Physical Exam Physical Exam: General: Appears more comfortable. No longer tachypneic. No longer with conversational dyspnea HENT: Normocephalic. Atraumatic. Eyes: PER. Conjunctiva pink, sclera clear. Neck: JVD. Heart: Somewhat distant heart sounds. Regular, 100 bpm. No murmur appreciated. PMI displaced. Lungs: Decreased. Diminished. No wheeze. Abdomen: +BS. Soft. Nontender. No masses or organomegaly. Extremities: 1+ peripheral edema. No cyanosis. Limited neurological examination is without focal deficits. Pulses: Posterior tibial=2/4. Results & Data Vital Signs (Past 12 Hours) Vital Signs Temp Pulse Pulse Resp BP Pulse Ox O2 Del Method 11/15/24 08:00 36.5 C 116 H 19 108/76 95 Room Air 11/15/24 07:30 106 H 11/15/24 03:16 36.7 C 117 H 21 107/77 98 Room Air 11/14/24 23:00 37.0 C 121 H 22 105/72 94 Room Air Laboratory Results Cardiac Enzymes 11/14/24 Range/Units 10:00 AST 89 H (13-39) U/L Troponin I High Sens 14.8 (0-20) pg/ml B-Natriuretic Peptide 1772 H (0-100) pg/ml Coagulation 11/14/24 Range/Units 10:00 B-Natriuretic Peptide 1772 H (0-100) pg/ml Lipids 11/15/24 Range/Units 05:17 Triglycerides 127 (0-150) mg/dl Cholesterol 86 (0-200) mg/dl HDL Cholesterol 30 mg/dl Cholesterol/HDL Ratio 2.9 (0-5) CBC 11/14/24 11/15/24 Range/Units 10:00 05:17 WBC 10.34 11.68 H (4.8-10.8) K/ul RBC 5.08 4.85 (4.70-6.10) M/uL Hgb 15.5 14.9 (14.0-18.0) g/dl Hct 48.0 45.1 (42.0-52.0) % Plt Count 259 241 (130-400) K/uL Neut # (Auto) 8.30 H (1.40-6.50) K/uL Lymph # (Auto) 1.26 (1.20-3.40) K/uL [place] # (Auto) 0.62 H (0.11-0.59) K/uL Eos # (Auto) 0.09 (0.00-0.50) K/uL Baso # (Auto) 0.03 (0.00-0.20) K/uL Comprehensive Metabolic Panel 11/14/24 11/15/24 Range/Units 10:00 05:17 Sodium 137 136 (136-145) mmol/L Potassium 4.5 4.5 (3.5-5.1) mmol/L Chloride 102 102 (98-107) mmol/L Carbon Dioxide 29 28 (21-32) mmol/L BUN 12 16 (6-23) mg/dl Creatinine 0.99 1.18 (0.6-1.4) mg/dl Glucose 110 H 115 H (70-99(Fasting)) mg/dl Calcium 9.1 8.5 L (8.6-10.3) mg/dl AST 89 H (13-39) U/L ALT 393 H (7-52) U/L Alkaline Phosphatase 83 (34-104) U/L Total Protein 6.2 (6.0-8.3) gm/dl Albumin 3.9 (3.4-5.0) gm/dl Intake and Output 11/14/24 11/15/24 11/15/24 22:59 06:59 14:59 Intake Total 120 / 880 660 / 880 Output Total 400 / 650 Balance -280 / 230 660 / 230 Intake: Oral 120 / 780 660 / 780 Output: Urine 400 / 650 Other: # Unmeasured Voids 3 Weight 104.8 kg Weight Measurement Method Standing Scale Diagnostic Findings November 14, 2024 TTE Interpretation Summary ([facility], Dr. Bajwa): Moderately dilated left ventricle Normal LV wall thickness Severe global hypokinesis of the left ventricle Severely reduced LV systolic function, EF 15 to 20%. Mild to moderate mitral regurgitation Mild tricuspid regurgitation Moderately dilated IVC Elevated RVSP, 40 to 50 mmHg November 15, 2024 EKG: Sinus tachycardia 107 bpm. Low voltage QRS. Cannot rule out an old anterior infarct. T wave inversion laterally, new compared to prior
[2024-11-15] MEDS: METOPROLOL SUCC 25MG EXT REL TAB PO ONE (11:28)
--- NOTE | 2024-11-15 12:36 | Hospitalist Progress Note ---
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 CXR noted congestion, cardiomegaly and pleural effusion. Recent CTA chest in [place] w/ no PE, had b/l pl effusion. BNP elevated 1772 TTE showed EF 15-20%, severe global hypokinesis of LV, mild to mod MR, mild TR, mod dil IVC, RVSP 40-50mmHg Continue IV lasix Tele showed NSVT. Discussed with Bart[employer] Metoprolol succinate increased to 25mg BID Continue aldactone Consider cardiac cath once vol optimized Other workup notable for positive lyme screen, will do doxycycline therapy History of asthma: Not wheezing, stable, continue home inhalers. History of GERD: Continue home omeprazole DVT prophylaxis: Lovenox Full code I spent a total of 55 minutes coordinating, documenting and providing care for this patient excluding time spent in performance of separately billed services Admission and Anticipated Discharge Date Admission Date: November 14, 2024 Subjective Patient seen and examined Reports cough, SOB, leg swelling Reports occasional palpitations overnight Denied chest pain Physical Exam Constitutional: + well hydrated; no acute distress Eyes: PERRL, conjunctivae normal, anicteric sclerae ENMT: external ear and nose normal, oropharynx normal Respiratory: normal respiratory effort; no respiratory distress Diminished breath sounds Cardiovascular: Rate/Rhythm: regular rate and regular rhythm Gastrointestinal (Abdomen): normal bowel sounds, soft, nontender, no hepatosplenomegaly Musculoskeletal: +pedal edema Neurologic: PERRL, EOMI, accommodation nl, no face palsy, no dysarthria Psychiatric: A+Ox3, euthymic affect Results & Data Results & Data Vital Signs (Past 12 Hours) Vital Signs Temp Pulse Pulse Resp BP Pulse Ox O2 Del Method 11/15/24 11:09 36.4 C L 109 H 19 107/75 96 Room Air 11/15/24 08:00 36.5 C 116 H 19 108/76 95 Room Air 11/15/24 07:30 106 H 11/15/24 03:16 36.7 C 117 H 21 107/77 98 Room Air Laboratory Results Abnormal lab results 11/14/24 11/15/24 11/15/24 Range/Units 10:00 05:17 07:47 WBC 11.68 H (4.8-10.8) K/ul RDW Std Deviation 49.2 H (36.4-46.3) fL Glucose 115 H (70-99(Fasting)) mg/dl POC Glucose 115 H (70-99) mg/dl Calcium 8.5 L (8.6-10.3) mg/dl Transferrin % Sat 9 L (20-50) % C-Reactive Protein (0-0.5) mg/dl Lyme Disease Screen (Negative) Lyme Tier 2 IgG Confirm (Negative) 11/15/24 Range/Units 11:24 WBC (4.8-10.8) K/ul RDW Std Deviation (36.4-46.3) fL Glucose (70-99(Fasting)) mg/dl POC Glucose (70-99) mg/dl Calcium (8.6-10.3) mg/dl Transferrin % Sat (20-50) % C-Reactive Protein 0.64 H (0-0.5) mg/dl Lyme Disease Screen Positive H (Negative) Lyme Tier 2 IgG Confirm Positive H (Negative)
[2024-11-15 12:55] LABS: Lyme Screen Rflx Confirmation Positive (Negative)
[2024-11-15 13:29] LABS: Lyme Ab IgG 2nd Tier Confirm Positive (Negative); Lyme Ab IgM 2nd Tier Confirm Negative (Negative)
[2024-11-15] MEDS: DOXYCYCLINE HYCLATE 100 MG CAP PO STA (15:25)
[2024-11-15] MEDS: FUROSEMIDE INJ 20 MG/2 ML VIAL IV ONE (16:14)
[2024-11-15] MEDS: POTASSIUM CHLORIDE 10 MEQ TABCR PO ONE (16:14)
[2024-11-15] MEDS: DOXYCYCLINE HYCLATE 100 MG CAP PO SCH (20:43)
[2024-11-15] MEDS: METOPROLOL SUCC 25MG EXT REL TAB PO SCH (20:44)
--- NOTE | 2024-11-15 21:31 | Electrocardiogram Report ---
Test Reason : Blood Pressure : */* mmHG Vent. Rate : 107 BPM Atrial Rate : 107 BPM P-R Int : 142 ms QRS Dur : 88 ms QT Int : 358 ms P-R-T Axes : 84 63 6 degrees QTcB Int : 477 ms Sinus tachycardia Low voltage QRS Anterior infarct (cited on or before 14-Nov-2024) T wave abnormality, consider inferolateral ischemia Abnormal ECG When compared with ECG of 14-Nov-2024 09:58, Inverted T waves have replaced nonspecific T wave abnormality in Inferolateral leads Confirmed by Stephen Moyer ([id number]) on 11/15/2024 9:31:12 PM Referred By: REFERRED SELF Confirmed By: Stephen Moyer
[2024-11-16] MEDS: diazePAM 2 MG TABLET PO ONE (02:50)
--- NOTE | 2024-11-16 03:28 | XRay Report ---
EXAM: XR chest 1V portable CLINICAL HISTORY: sob TECHNIQUE: Radiograph of chest was acquired. COMPARISON: Prior Xrays dated 11/14/2024 and 11/11/2024 were reviewed. FINDINGS: Ill defined asymmetric haziness noted in right lower zone adjacent to right heart border- could be right middle/lower lobe consolidation/atelectasis changes - interval increase compared to XRAY dated 11/14/2024 Prominent peripheral bronchovascular markings in bilateral lung berrios. The cardiomediastinal silhouette is within normal limits. No acute osseous abnormality. IMPRESSION: 1. Ill defined asymmetric haziness in right lower zone adjacent to right heart border- could be right middle/lower lobe consolidation/atelectasis changes - interval increase compared to XRAY dated 11/14/2024 2. Prominent peripheral bronchovascular markings in bilateral lung berrios. Electronically signed by Virgil Kenny 11-16-2024 03:27 AM
[2024-11-16 06:18] LABS: Hematocrit (blood only) 45.5 % (42.0-52.0); Hemoglobin 14.9 g/dl (14.0-18.0); Mean Corpuscular Hemoglobin 30.5 pg (25.0-34.0); Mean Corpuscular Hgb Conc 32.7 g/dL (32.0-36.0); Mean Corpuscular Volume 93.2 fL (80.0-100.0); Platelet Count 261 K/uL (130-400); RDW Coefficient of Variation 14.3 % (11.5-14.5); Red Blood Count 4.88 M/uL (4.70-6.10); White Blood Count 11.55 K/ul (4.8-10.8)
[2024-11-16 06:45] LABS: Albumin Globulin Ratio 1.5 (0.9-2); Albumin Level 3.5 gm/dl (3.4-5.0); BUN Creatinine Ratio 17.4 (10-20); Bilirubin,Total 0.5 mg/dl (0.2-1.0); Calcium 8.6 mg/dl (8.6-10.3); Creatinine Clr Calc Pharmacy 97.1 ml/min; Globulin 2.3 gm/dl (2.5-4.0); Magnesium 1.9 mg/dl (1.7-2.4); Phosphorus 3.6 mg/dl (2.5-4.9); Potassium 4.1 mmol/L (3.5-5.1); Total Protein 5.8 gm/dl (6.0-8.3)
--- NOTE | 2024-11-16 09:31 | Cardiology Progress Note ---
Date of Service November 16, 2024 Assessment & Plan (1) Heart failure, systolic, with acute decompensation: (2) NYHA Class IV cardiovascular function: (3) Abnormal EKG: Plan 44-year-old male admitted on November 14, 2024 with signs and symptoms of acute decompensated heart failure. - TTE with moderately dilated left ventricle with severe global hypokinesis, severely reduced LV systolic function, EF 15 to 20%, mild to moderate mitral regurgitation. NYHA Class IV. - Abnormal EKG, with narrow QRS duration - Maintaining sinus rhythm - Occasional ventricular ectopy, no further nonsustained ventricular tachycardia - Volume status: Hypervolemia Recommendations: * Increase IV furosemide * Supplemental potassium orally * Continue spironolactone and metoprolol succinate as prescribed. * Adding very low dose Entresto for now, pending the above. * Refer for non-contrast CT chest, RE: Abnormal chest x-ray * OK to feed; no cardiac catheterization at this point. * Maintain telemetry Admission and Anticipated Discharge Date Admission Date: November 14, 2024 Supervising Physician Co-Signing Physician Notes Patient seen and examined, chart and telemetry reviewed. Full assessment and plan as by advanced provider as above. Care management endorsed 1. Acute decompensated systolic heart failure 2. Dilated cardiomyopathy with severe LV dysfunction, acute: No distinct etiology discerned. Pattern not consistent with ischemic cardiomyopathy. Slowly responding to IV diuretics. Ultimate goal institution of GDMT following closely for signs of further deterioration Subjective Patient seen and examined. Chart, medications, telemetry reviewed. Rough night. "I had lots of trouble breathing last night. They said it was a panic attack. They gave me Valium. It didn't do anything. I had to sit up gasping for air." Ongoing cough and peripheral edema. No chest pain. No palpitations. No dizziness or syncope. No fevers. No chills. Review of Systems Review of Systems: Complete Review of Systems is as stated above, negative, or noncontributory. Physical Exam Physical Exam: General: Somewhat anxious initially. Increased work of breathing. HENT: Normocephalic. Atraumatic. Eyes: PER. Conjunctiva pink, sclera clear. Neck: JVD. Heart: Somewhat distant heart sounds. Regular, 100 bpm. No murmur appreciated. PMI displaced. Lungs: Decreased. Diminished. Right lower rales. No wheeze. Abdomen: +BS. Soft. Nontender. No masses or organomegaly. Extremities: 1+ peripheral edema. No cyanosis. Limited neurological examination is without focal deficits. Pulses: Posterior tibial=2/4. Results & Data Vital Signs (Past 12 Hours) Vital Signs Temp Pulse Pulse Pulse Resp BP BP 11/16/24 07:49 105 H 11/16/24 07:45 36.4 C L 103 H 19 134/87 11/16/24 02:46 36.7 C 112 H 21 101/78 11/16/24 02:09 113 H 28 H 11/16/24 02:09 11/16/24 00:32 98 H 18 11/16/24 00:07 111 H 11/15/24 22:53 36.7 C 108 H 19 93/65 L Pulse Ox O2 Del Method O2 Flow Rate 11/16/24 07:49 11/16/24 07:45 94 Room Air 11/16/24 02:46 96 Room Air 11/16/24 02:09 90 Room Air 1 11/16/24 02:09 Nasal Cannula 1 11/16/24 00:32 97 Room Air 11/16/24 00:07 11/15/24 22:53 97 Room Air Laboratory Results Cardiac Enzymes 11/16/24 Range/Units 05:28 AST 55 H (13-39) U/L CBC 11/16/24 Range/Units 05:28 WBC 11.55 H (4.8-10.8) K/ul RBC 4.88 (4.70-6.10) M/uL Hgb 14.9 (14.0-18.0) g/dl Hct 45.5 (42.0-52.0) % Plt Count 261 (130-400) K/uL Comprehensive Metabolic Panel 11/16/24 Range/Units 05:28 Sodium 137 (136-145) mmol/L Potassium 4.1 (3.5-5.1) mmol/L Chloride 103 (98-107) mmol/L Carbon Dioxide 27 (21-32) mmol/L BUN 21 (6-23) mg/dl Creatinine 1.21 (0.6-1.4) mg/dl Glucose 118 H (70-99(Fasting)) mg/dl Calcium 8.6 (8.6-10.3) mg/dl AST 55 H (13-39) U/L ALT 242 H (7-52) U/L Alkaline Phosphatase 77 (34-104) U/L Total Protein 5.8 L (6.0-8.3) gm/dl Albumin 3.5 (3.4-5.0) gm/dl Intake and Output 11/15/24 11/16/24 11/16/24 22:59 06:59 14:59 Intake Total 1380 / 1380 0 / 1380 Output Total 975 / 1175 200 / 1175 Balance 405 / 205 -200 / 205 Intake: Oral 1380 / 1380 0 / 1380 Output: Urine 975 / 1175 200 / 1175 Other: Other Intake Source NPO # Unmeasured Voids 1 Weight 102.7 kg Weight Measurement Method Standing Scale Diagnostic Findings Telemetry: Sinus/sinus tachycardia. Occasional PVCs. November 16, 2024 CXR: Ill defined asymmetric haziness in right lower zone adjacent to right heart border- could be right middle/lower lobe consolidation/atelectasis changes - interval increase compared to XRAY dated 11/14/2024. Prominent peripheral bronchovascular markings in bilateral lung berrios.
--- NOTE | 2024-11-16 09:55 | Electrocardiogram Report ---
Test Reason : Blood Pressure : */* mmHG Vent. Rate : 105 BPM Atrial Rate : 105 BPM P-R Int : 150 ms QRS Dur : 86 ms QT Int : 348 ms P-R-T Axes : 86 76 18 degrees QTcB Int : 459 ms Sinus tachycardia Possible Left atrial enlargement Low voltage QRS Anterior infarct (cited on or before 14-Nov-2024) Nonspecific T wave abnormality Abnormal ECG When compared with ECG of 15-Nov-2024 06:01, T wave inversion no longer evident in Anterolateral leads Confirmed by Stephen Moyer ([id number]) on 11/16/2024 9:55:09 AM Referred By: REFERRED SELF Confirmed By: Stephen Moyer
--- NOTE | 2024-11-16 10:32 | Hospitalist Progress Note ---
Date of Service November 16, 2024 Assessment & Plan (1) Congestive heart failure: (2) Heart failure, systolic, with acute decompensation: Plan 44 year old man with h/o IVDU (quit a long time ago), previous smoker who presents with progressive shortness of breath for about 10 days, 25 pound weight gain in the last 13 days [employer]. CXR noted congestion, cardiomegaly and pleural effusion. Recent CTA chest in [place] w/ no PE, had b/l pl effusion. BNP elevated 1772 TTE showed EF 15-20%, severe global hypokinesis of LV, mild to mod MR, mild TR, mod dil IVC, RVSP 40-50mmHg Continue IV lasix, increased to BID Monitor I/O Continue Metoprolol succinate 25mg BID Continue aldactone Consider cardiac cath once vol optimized Other workup notable for positive lyme screen, on doxycycline therapy History of asthma: Not wheezing, stable, continue home inhalers. History of GERD: Continue home omeprazole DVT prophylaxis: Lovenox Full code I spent a total of 50 minutes coordinating, documenting and providing care for this patient excluding time spent in performance of separately billed services Admission and Anticipated Discharge Date Admission Date: November 14, 2024 Subjective Patient seen and examined Reports he had a rough night during which he was anxious and had difficulty breathing Still has cough and leg swelling Physical Exam Constitutional: + well hydrated; no acute distress Eyes: PERRL, conjunctivae normal, anicteric sclerae ENMT: external ear and nose normal, oropharynx normal Respiratory: normal respiratory effort; no respiratory distress Diminished breath sounds Cardiovascular: Rate/Rhythm: regular rate and regular rhythm Gastrointestinal (Abdomen): normal bowel sounds, soft, nontender, no hepatosplenomegaly Musculoskeletal: +pedal edema Neurologic: PERRL, EOMI, accommodation nl, no face palsy, no dysarthria Psychiatric: A+Ox3, euthymic affect Results & Data Results & Data Vital Signs (Past 12 Hours) Vital Signs Temp Pulse Pulse Pulse Resp BP BP 11/16/24 07:49 105 H 11/16/24 07:45 36.4 C L 103 H 19 134/87 11/16/24 02:46 36.7 C 112 H 21 101/78 11/16/24 02:09 113 H 28 H 11/16/24 02:09 11/16/24 00:32 98 H 18 11/16/24 00:07 111 H 11/15/24 22:53 36.7 C 108 H 19 93/65 L Pulse Ox O2 Del Method O2 Flow Rate 11/16/24 07:49 11/16/24 07:45 94 Room Air 11/16/24 02:46 96 Room Air 11/16/24 02:09 90 Room Air 1 11/16/24 02:09 Nasal Cannula 1 11/16/24 00:32 97 Room Air 11/16/24 00:07 11/15/24 22:53 97 Room Air Laboratory Results Abnormal lab results 11/16/24 Range/Units 05:28 WBC 11.55 H (4.8-10.8) K/ul RDW Std Deviation 49.0 H (36.4-46.3) fL Glucose 118 H (70-99(Fasting)) mg/dl AST 55 H (13-39) U/L ALT 242 H (7-52) U/L Total Protein 5.8 L (6.0-8.3) gm/dl Globulin 2.3 L (2.5-4.0) gm/dl
--- NOTE | 2024-11-16 13:31 | CT Scan Report ---
CT OF THE CHEST WITHOUT IV CONTRAST CLINICAL HISTORY: abnormal CXR. Cardiomyopathy COMPARISON STUDY: Chest CT November 11, 2024. Chest radiograph performed earlier today. CT DOSE: 653.84 mGy.cm TECHNIQUE: Axial images of the chest were obtained without IV contrast. Images were reviewed in the axial, sagittal, and coronal planes. IV contrast was not administered for this examination. Automat ed exposure control was utilized for the study. A dose lowering technique was utilized adhering to t he principles of ALARA. FINDINGS: There are no enlarged axillary, mediastinal or hilar lymph nodes. The heart is moderately enlarged. There is no pericardial effusion. No pneumothorax. Small bilateral pleural effusions, right larger than left, are similar to CT of November 11, 2024. Interlobular septal thickening is present. Rig ht lower lobe subpleural opacity with volume loss is similar to prior CT. Central airways are patent. There are mild secretions within the airways. Visualized portions of the upper abdomen are unremarka ble on unenhanced exam. There are no suspicious pulmonary nodules. IMPRESSION: 1. Cardiomegaly with mild interstitial pulmonary edema. 2. No change in small bilateral pleural effusions right larger than left, since CT of November 11, 2024. 3. Subpleural right lower lobe opacity with volume loss, similar to prior chest CT. This favors atele ctasis. An infectious process is within the differential but considered less likely. 4. Mild secretions within the airways. ACT 112: Negative or not required by law. Electronically signed by: Floyd Mitchell M.D. 11/16/2024 1:29 PM
[2024-11-16] MEDS: LORazepam 1 MG TAB PO PRN (14:22)
[2024-11-16] MEDS: POTASSIUM CHLORIDE CRTAB 20 MEQ TABCR PO ONE (16:14)
[2024-11-16] MEDS: FUROSEMIDE 40 MG/4 ML VIAL IV SCH (16:14)
[2024-11-16] MEDS ORDERED: SPIRONOLACTONE 12.5 MG TAB PO SCH (17:00)
[2024-11-16] MEDS: VALSARTAN/SACUBITRIL 26/24MG TAB PO SCH (20:50)
[2024-11-16] MEDS: LORazepam 0.5 MG TAB PO STA (21:28)
[2024-11-17 06:14] LABS: Albumin Globulin Ratio 1.5 (0.9-2); Bilirubin,Total 0.9 mg/dl (0.2-1.0); Globulin 2.2 gm/dl (2.5-4.0); Magnesium 1.8 mg/dl (1.7-2.4); Phosphorus 3.4 mg/dl (2.5-4.9); Potassium 3.9 mmol/L (3.5-5.1); Total Protein 5.5 gm/dl (6.0-8.3)
[2024-11-17 06:22] LABS: Albumin Level 3.3 gm/dl (3.4-5.0); Calcium 8.4 mg/dl (8.6-10.3); Creatinine Clr Calc Pharmacy 97.3 ml/min
[2024-11-17] MEDS: SPIRONOLACTONE 12.5 MG TAB PO SCH (08:55)
--- NOTE | 2024-11-17 09:26 | Cardiology Progress Note ---
Date of Service November 17, 2024 Assessment & Plan (1) Heart failure, systolic, with acute decompensation: (2) NYHA Class IV cardiovascular function: (3) Abnormal EKG: Plan 44-year-old male admitted on November 14, 2024 with signs and symptoms of acute decompensated heart failure. - TTE with moderately dilated left ventricle with severe global hypokinesis, severely reduced LV systolic function, EF 15 to 20%, mild to moderate mitral regurgitation. NYHA Class IV. - Abnormal EKG, with narrow QRS duration - Maintaining sinus rhythm - Occasional ventricular ectopy, no further nonsustained ventricular tachycardia - Volume status: Hypervolemia Recommendations: * Increase IV furosemide * Supplemental potassium orally * Continue spironolactone and metoprolol succinate as prescribed. * Adding very low dose Entresto for now, pending the above. * Refer for non-contrast CT chest, RE: Abnormal chest x-ray * OK to feed; no cardiac catheterization at this point. * Maintain telemetry 11/17/2024 1. Acute systolic heart failure 2. Dilated cardiomyopathy with severe LV dysfunction Recommendations: Better compensated today. Continue IV furosemide additional 24 hours. GDMT initiated with metoprolol succinate spironolactone Entresto with clinical improvement. Will likely refer for diagnostic coronary angiography on Tuesday depending on clinical course Admission and Anticipated Discharge Date Admission Date: November 14, 2024 Subjective Patient was seen and personally examined. Telemetry reviewed. Clinically improved this morning. Less dyspnea overnight. Feels more comfortable heart rate and blood pressures trending towards better management. Still with mild pedal edema. No sustained arrhythmias Review of Systems Review of Systems: All systems reviewed & are unremarkable except as noted in Subjective Physical Exam 2 Constitutional: no acute distress Eyes: PERRL, conjunctivae normal, anicteric sclerae ENMT: external ear and nose normal, oropharynx normal Neck: trachea midline, no thyromegaly Respiratory: Auscultation: + diminished lung sounds Cardiovascular: Rate/Rhythm: regular rate and regular rhythm Heart Sounds: + gallop (Summation); no murmur Vessels: no JVD Extremities: + edema (1+ pedal) Gastrointestinal (Abdomen): normal bowel sounds, soft, nontender, no hepatosp lenomegaly Musculoskeletal: no cyanosis or clubbing, extremities motor strength 5/5 Results & Data Vital Signs (Past 12 Hours) Vital Signs Temp Pulse Pulse Resp BP BP Pulse Ox 11/17/24 08:51 95 H 11/17/24 07:36 36.4 C L 87 18 102/80 94 11/17/24 02:45 36.4 C L 90 20 90/60 L 94 11/16/24 23:58 101 H 11/16/24 23:13 36.4 C L 94 H 20 90/56 L 95 O2 Del Method 11/17/24 08:51 11/17/24 07:36 Room Air 11/17/24 02:45 Room Air 11/16/24 23:58 11/16/24 23:13 Room Air Laboratory Results Laboratory Results - last 24 hr 11/17/24 05:19 Sodium 138 Potassium 3.9 Chloride 104 Carbon Dioxide 26 Anion Gap 8 BUN 24 H Creatinine 1.20 Est Cr Clr Drug Dosing 97.3 eGFR 76.00 BUN/Creatinine Ratio 20.0 Glucose 101 H Calcium 8.4 L Phosphorus 3.4 Magnesium 1.8 Total Bilirubin 0.9 AST 52 H ALT 195 H Alkaline Phosphatase 65 Total Protein 5.5 L Albumin 3.3 L Globulin 2.2 L Albumin/Globulin Ratio 1.5
--- NOTE | 2024-11-17 10:27 | Hospitalist Progress Note ---
Date of Service November 17, 2024 Assessment & Plan (1) Congestive heart failure: (2) Heart failure, systolic, with acute decompensation: Plan 44 year old man with h/o IVDU (quit a long time ago), previous smoker who presents with progressive shortness of breath for about 10 days, 25 pound weight gain in the last 13 days [employer]. CXR noted congestion, cardiomegaly and pleural effusion. Recent CTA chest in [place] w/ no PE, had b/l pl effusion. BNP elevated 1772 TTE showed EF 15-20%, severe global hypokinesis of LV, mild to mod MR, mild TR, mod dil IVC, RVSP 40-50mmHg Continue IV lasix, increased to BID Monitor I/O Continue Metoprolol succinate 25mg BID Continue aldactone Consider cardiac cath once vol optimized Other workup notable for positive lyme screen, on doxycycline therapy Started on buspirone for anxiety History of asthma: Not wheezing, stable, continue home inhalers. History of GERD: Continue home omeprazole DVT prophylaxis: Loveleopoldox Full code I spent a total of 50 minutes coordinating, documenting and providing care for this patient excluding time spent in performance of separately billed services Admission and Anticipated Discharge Date Admission Date: November 14, 2024 Subjective Patient seen and examined Cough and SOB much improved Has occasional anxiety Physical Exam Constitutional: + well hydrated; no acute distress Eyes: PERRL, conjunctivae normal, anicteric sclerae ENMT: external ear and nose normal, oropharynx normal Respiratory: normal respiratory effort; no respiratory distress Cardiovascular: Rate/Rhythm: regular rate and regular rhythm Gastrointestinal (Abdomen): normal bowel sounds, soft, nontender, no hepatosplenomegaly Musculoskeletal: +pedal edema Neurologic: PERRL, EOMI, accommodation nl, no face palsy, no dysarthria Psychiatric: A+Ox3, euthymic affect Results & Data Results & Data Vital Signs (Past 12 Hours) Vital Signs Temp Pulse Pulse Resp BP BP Pulse Ox 11/17/24 08:51 95 H 11/17/24 07:36 36.4 C L 87 18 102/80 94 11/17/24 02:45 36.4 C L 90 20 90/60 L 94 11/16/24 23:58 101 H 11/16/24 23:13 36.4 C L 94 H 20 90/56 L 95 O2 Del Method 11/17/24 08:51 04/12/25 07:36 Room Air 11/17/24 02:45 Room Air 11/16/24 23:58 11/16/24 23:13 Room Air Laboratory Results Abnormal lab results 11/17/24 Range/Units 05:19 BUN 24 H (6-23) mg/dl Glucose 101 H (70-99(Fasting)) mg/dl Calcium 8.4 L (8.6-10.3) mg/dl AST 52 H (13-39) U/L ALT 195 H (7-52) U/L Total Protein 5.5 L (6.0-8.3) gm/dl Albumin 3.3 L (3.4-5.0) gm/dl Globulin 2.2 L (2.5-4.0) gm/dl
[2024-11-17] MEDS: busPIRone 5 MG TAB PO SCH (12:23)
[2024-11-18 06:21] LABS: Hematocrit (blood only) 48.8 % (42.0-52.0); Hemoglobin 16.1 g/dl (14.0-18.0); Mean Corpuscular Hemoglobin 30.3 pg (25.0-34.0); Mean Corpuscular Volume 91.7 fL (80.0-100.0); Mean Platelet Volume 11.3 fL (9.4-12.4); Platelet Count 286 K/uL (130-400); RDW Coefficient of Variation 14.1 % (11.5-14.5); RDW Standard Deviation 47.5 fL (36.4-46.3); Red Blood Count 5.32 M/uL (4.70-6.10); White Blood Count 10.31 K/ul (4.8-10.8)
[2024-11-18 06:43] LABS: BUN Creatinine Ratio 18.7 (10-20); Calcium 8.3 mg/dl (8.6-10.3); Creatinine Clr Calc Pharmacy 94.2 ml/min; Magnesium 1.7 mg/dl (1.7-2.4); Phosphorus 3.2 mg/dl (2.5-4.9); Potassium 3.7 mmol/L (3.5-5.1)
[2024-11-18] MEDS: METOPROLOL SUCC 50MG EXT REL TAB PO ONE (10:02)
--- NOTE | 2024-11-18 10:07 | Cardiology Progress Note ---
Date of Service November 18, 2024 Assessment & Plan (1) Heart failure, systolic, with acute decompensation: (2) NYHA Class IV cardiovascular function: (3) Abnormal EKG: Plan 44-year-old male admitted on November 14, 2024 with signs and symptoms of acute decompensated heart failure. - TTE with moderately dilated left ventricle with severe global hypokinesis, severely reduced LV systolic function, EF 15 to 20%, mild to moderate mitral regurgitation. NYHA Class IV. - Abnormal EKG, with narrow QRS duration - Maintaining sinus rhythm - Occasional ventricular ectopy, no further nonsustained ventricular tachycardia - Volume status: Hypervolemia Recommendations: * Increase IV furosemide * Supplemental potassium orally * Continue spironolactone and metoprolol succinate as prescribed. * Adding very low dose Entresto for now, pending the above. * Refer for non-contrast CT chest, RE: Abnormal chest x-ray * OK to feed; no cardiac catheterization at this point. * Maintain telemetry 11/17/2024 1. Acute systolic heart failure 2. Dilated cardiomyopathy with severe LV dysfunction Recommendations: Better compensated today. Continue IV furosemide additional 24 hours. GDMT initiated with metoprolol succinate spironolactone Entresto with clinical improvement. Will likely refer for diagnostic coronary angiography on Tuesday depending on clinical course 11/18/2024 1. Acute systolic heart failure 2. Dilated cardiomyopathy with severe LV dysfunction 3. Nonsustained ventricular tachycardia Clinically improved, tolerating GDMT will increase metoprolol succinate to 37.5 mg twice per day Change diuretic to oral tomorrow. Hold furosemide IV after morning dose today Continue Entresto spironolactone Keep n.p.o. after midnight tonight for anticipation of coronary angiography tomorrow Genetic testing post discharge given familial history of heart failure Admission and Anticipated Discharge Date Admission Date: November 14, 2024 Subjective Patient seen and examined, chart, medications, telemetry reviewed. Feels substantially improved this morning respiratory status much better. Oxygenating well on room air. Heart rates trending slightly lower. Telemetry notable for single 10 beat run of ventricular tachycardia overnight, asymptomatic. Review of Systems Review of Systems: All systems reviewed & are unremarkable except as noted in Subjective Physical Exam Constitutional: no acute distress Eyes: PERRL, conjunctivae normal, anicteric sclerae ENMT: external ear and nose normal, oropharynx normal Neck: trachea midline, no thyromegaly Respiratory: Auscultation: lungs clear to auscultation bilaterally and + diminished lung sounds Cardiovascular: Rate/Rhythm: regular rate and regular rhythm Heart Sounds: + gallop (Summation); no murmur Vessels: no JVD Extremities: no edema (1+ pedal) Gastrointestinal (Abdomen): normal bowel sounds, soft, nontender, no hepatosplenomegaly Musculoskeletal: no cyanosis or clubbing, extremities motor strength 5/5 Results & Data Vital Signs (Past 12 Hours) Vital Signs Temp Pulse Pulse Resp BP Pulse Ox O2 Del Method 11/18/24 07:55 36.3 C L 91 H 18 106/77 96 Room Air 11/18/24 07:23 85 11/18/24 02:52 36.6 C 87 18 108/75 96 Room Air 11/17/24 23:17 87 11/17/24 22:28 36.3 C L 97 H 18 104/73 96 Room Air Laboratory Results Laboratory Results - last 24 hr 11/18/24 05:40 WBC 10.31 RBC 5.32 Hgb 16.1 Hct 48.8 MCV 91.7 MCH 30.3 MCHC 33.0 RDW Std Deviation 47.5 H RDW Coeff of [place] 14.1 Plt Count 286 MPV 11.3 Sodium 138 Potassium 3.7 Chloride 103 Carbon Dioxide 28 Anion Gap 7 BUN 23 Creatinine 1.23 Est Cr Clr Drug Dosing 94.2 eGFR 73.78 BUN/Creatinine Ratio 18.7 Glucose 109 H Calcium 8.3 L Phosphorus 3.2 Magnesium 1.7
--- NOTE | 2024-11-18 10:59 | Hospitalist Progress Note ---
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 CXR noted congestion, cardiomegaly and pleural effusion. Recent CTA chest in [place] w/ no PE, had b/l pl effusion. BNP elevated 1771 TTE showed EF 15-20%, severe global hypokinesis of LV, mild to mod MR, mild TR, mod dil IVC, RVSP 40-50mmHg Continue IV lasix, increased to BID Monitor I/O Metoprolol succinate increased to 37.5mg BID Continue aldactone NPO PMN for cardiac cath tomorrow Other workup notable for positive lyme screen, on doxycycline therapy Started on buspirone for anxiety History of asthma: Not wheezing, stable, continue home inhalers. History of GERD: Continue home omeprazole DVT prophylaxis: Lovenox held for procedure tomorrow Full code I spent a total of 40 minutes coordinating, documenting and providing care for this patient excluding time spent in performance of separately billed services Admission and Anticipated Discharge Date Admission Date: November 14, 2024 Subjective Patient seen and examined Feeling better today Had 10b VT overnight on tele that was asymptomatic Physical Exam Constitutional: + well hydrated; no acute distress Eyes: PERRL, conjunctivae normal, anicteric sclerae ENMT: external ear and nose normal, oropharynx normal Respiratory: normal respiratory effort; no respiratory distress Cardiovascular: Rate/Rhythm: regular rate and regular rhythm Gastrointestinal (Abdomen): normal bowel sounds, soft, nontender, no hepatosplenomegaly Musculoskeletal: +pedal edema Neurologic: PERRL, EOMI, accommodation nl, no face palsy, no dysarthria Psychiatric: A+Ox3, euthymic affect Results & Data Results & Data Vital Signs (Past 12 Hours) Vital Signs Temp Pulse Pulse Resp BP Pulse Ox O2 Del Method 11/18/24 10:42 Room Air 11/18/24 07:55 36.3 C L 91 H 18 106/77 96 Room Air 11/18/24 07:23 85 11/18/24 02:52 36.6 C 87 18 108/75 96 Room Air 04/12/25 23:17 87 Laboratory Results Abnormal lab results 11/18/24 Range/Units 05:40 RDW Std Deviation 47.5 H (36.4-46.3) fL Glucose 109 H (70-99(Fasting)) mg/dl Calcium 8.3 L (8.6-10.3) mg/dl
[2024-11-18] MEDS: METOPROLOL SUCC 25MG EXT REL TAB PO SCH (19:55)
[2024-11-19 02:36] LABS: BUN Creatinine Ratio 16.7 (10-20); Calcium 8.3 mg/dl (8.6-10.3); Creatinine Clr Calc Pharmacy 83.9 ml/min; Magnesium 1.6 mg/dl (1.7-2.4); Potassium 3.6 mmol/L (3.5-5.1)
[2024-11-19 03:07] LABS: Troponin I High Sensitivity 61.6 pg/ml (0-20)
[2024-11-19] MEDS: POTASSIUM CHLORIDE CRTAB 20 MEQ TABCR PO STA (03:16)
[2024-11-19] MEDS: MAGNESIUM SULFATE / D5W 1 GM/100 ML BAG IV SCH (03:18)
[2024-11-19 07:06] LABS: Calcium 8.5 mg/dl (8.6-10.3); Potassium 3.9 mmol/L (3.5-5.1)
[2024-11-19 07:12] LABS: BUN Creatinine Ratio 16.3 (10-20); Creatinine Clr Calc Pharmacy 89.2 ml/min
--- NOTE | 2024-11-19 09:54 | Cardiology Progress Note ---
Date of Service November 19, 2024 Assessment & Plan (1) Heart failure, systolic, with acute decompensation: (2) NYHA Class IV cardiovascular function: (3) Abnormal EKG: (4) NSVT (nonsustained ventricular tachycardia): Plan 44-year-old male admitted on November 14, 2024 with signs and symptoms of acute decompensated heart failure. - TTE with moderately dilated left ventricle with severe global hypokinesis, severely reduced LV systolic function, EF 15 to 20%, mild to moderate mitral regurgitation. NYHA Class IV. - Abnormal EKG, with narrow QRS duration - Maintaining sinus rhythm - Occasional ventricular ectopy, NSVT -LDL 31 mg/dl this admission. Plan: Clinically improved, tolerating GDMT with recent dose increased to metoprolol succinate 37.5 mg BID on 11/18. Continue Entresto spironolactone Procced with cardiac catheterization. Patient agreeable to procedure. Genetic testing post discharge given familial history of heart failure Admission and Anticipated Discharge Date Admission Date: November 14, 2024 Subjective Patient seen in cardiology follow up. Shortness of breath improved compared to when he first came to hospital. Telemetry reveals SR in the 80s. Endorses long standing history of smoking. Patient's father with history of possible CAD (patient not sure) had CHF and an AICD. Mother with history of CHF. Patient not aware of additional details. Both parents are alive in there 70s. 22 beat run of NSVT observed overnight. Physical Exam Constitutional: no acute distress Eyes: PERRL, conjunctivae normal, anicteric sclerae ENMT: external ear and nose normal, oropharynx normal Neck: trachea midline, no thyromegaly Respiratory: Auscultation: lungs clear to auscultation bilaterally and + diminished lung sounds Cardiovascular: Rate/Rhythm: regular rate and regular rhythm Heart Sounds: + gallop (Summation); no murmur Vessels: no JVD Extremities: no edema Gastrointestinal (Abdomen): normal bowel sounds, soft, nontender, no hepat osplenomegaly Musculoskeletal: no cyanosis or clubbing, extremities motor strength 5/5 Results & Data Vital Signs (Past 12 Hours) Vital Signs Temp Pulse Pulse Resp BP BP Pulse Ox 11/19/24 07:19 36.3 C L 88 20 94/65 L 99 11/19/24 02:00 36.5 C 88 16 106/75 96 11/18/24 23:02 98 H 11/18/24 22:52 11/18/24 22:42 36.8 C 88 18 110/60 95 O2 Del Method 11/19/24 07:19 Room Air 11/19/24 02:00 Room Air 11/18/24 23:02 11/18/24 22:52 Room Air 11/18/24 22:42 Room Air Laboratory Results Cardiac Enzymes 11/19/24 Range/Units 02:06 Troponin I High Sens 61.6 H* (0-20) pg/ml Comprehensive Metabolic Panel 11/19/24 11/19/24 Range/Units 02:06 05:23 Sodium 137 138 (136-145) mmol/L Potassium 3.6 3.9 (3.5-5.1) mmol/L Chloride 103 105 (98-107) mmol/L Carbon Dioxide 28 26 (21-32) mmol/L BUN 23 21 (6-23) mg/dl Creatinine 1.38 1.29 (0.6-1.4) mg/dl Glucose 109 H 99 (70-99(Fasting)) mg/dl Calcium 8.3 L 8.5 L (8.6-10.3) mg/dl Intake and Output 11/18/24 11/19/24 11/19/24 22:59 06:59 14:59 Intake Total 200 / 1782.5 92.5 / 1782.5 100 / 100 Output Total 450 / 1650 Balance 200 / 132.5 -357.5 / 132.5 100 / 100 Intake: IV 92.5 / 92.5 100 / 100 Magnesium Sulfate / D5w 1 gm In 92.5 / 92.5 100 / 100 100 ml @ 50 mls/hr IV Q2H [facility] Rx#:[id number] Oral 200 / 1690 Output: Urine 450 / 1650 Other: Other Intake Source npo Weight 98.2 kg Weight Measurement Method Standing Scale Diagnostic Findings EKG performed on 11/19/24, SR at 84, lateral T wave inversions in leads I and V6.
[2024-11-19] MEDS: MAGNESIUM OXIDE 400 MG TAB PO SCH (10:58)
--- NOTE | 2024-11-19 11:14 | Electrocardiogram Report ---
Test Reason : Blood Pressure : */* mmHG Vent. Rate : 84 BPM Atrial Rate : 84 BPM P-R Int : 166 ms QRS Dur : 92 ms QT Int : 404 ms P-R-T Axes : 67 -39 102 degrees QTcB Int : 477 ms Normal sinus rhythm Left axis deviation Anterior infarct (cited on or before 14-Nov-2024) Abnormal ECG When compared with ECG of 16-Nov-2024 05:47, QRS axis Shifted left Confirmed by Saeid Beaver ([id number]) on 11/19/2024 11:14:05 AM Referred By: REFERRED SELF Confirmed By: Saeid Beaver
--- NOTE | 2024-11-19 11:22 | Hospitalist Progress Note ---
Date of Service November 19, 2024 Assessment & Plan (1) Congestive heart failure: (2) Heart failure, systolic, with acute decompensation: Plan 44 year old man with h/o IVDU (quit a long time ago), previous smoker who presents with progressive shortness of breath for about 10 days, 25 pound weight gain in the last 13 days [employer]. CXR noted congestion, cardiomegaly and pleural effusion. Recent CTA chest in [place] w/ no PE, had b/l pl effusion. BNP elevated 1771 TTE showed EF 15-20%, severe global hypokinesis of LV, mild to mod MR, mild TR, mod dil IVC, RVSP 40-50mmHg Continue IV lasix, increased to BID Monitor I/O Continue Metoprolol succinate 37.5mg BID Continue aldactone Currently awaiting cardiac cath today Other workup notable for positive lyme screen, on doxycycline therapy Continue buspirone for anxiety History of asthma: Not wheezing, stable, continue home inhalers. History of GERD: Continue home omeprazole DVT prophylaxis: Lovenox held for procedure Full code I spent a total of 45 minutes coordinating, documenting and providing care for this patient excluding time spent in performance of separately billed services Admission and Anticipated Discharge Date Admission Date: November 14, 2024 Subjective Patient seen and examined Reports SOB is improved No cough, chest pain Had NSVT overnight Physical Exam Constitutional: + well hydrated; no acute distress Eyes: PERRL, conjunctivae normal, anicteric sclerae ENMT: external ear and nose normal, oropharynx normal Respiratory: normal respiratory effort; no respiratory distress Diminished breath sounds Cardiovascular: Rate/Rhythm: regular rate and regular rhythm Gastrointestinal (Abdomen): normal bowel sounds, soft, nontender, no hepatosplenomegaly Musculoskeletal: No pedal edema Neurologic: PERRL, EOMI, accommodation nl, no face palsy, no dysarthria Psychiatric: A+Ox3, euthymic affect Results & Data Results & Data Vital Signs (Past 12 Hours) Vital Signs Temp Pulse Resp BP BP Pulse Ox O2 Del Method 11/19/24 10:54 36.3 C L 85 20 101/72 98 Room Air 11/19/24 08:00 Nasal Cannula 11/19/24 07:19 36.3 C L 88 20 94/65 L 99 Room Air 11/19/24 02:00 36.5 C 88 16 106/75 96 Room Air O2 Flow Rate 11/19/24 10:54 11/19/24 08:00 2 11/19/24 07:19 11/19/24 02:00 Laboratory Results Abnormal lab results 11/19/24 11/19/24 11/19/24 Range/Units 02:06 05:23 11:46 Glucose 109 H (70-99(Fasting)) mg/dl Calcium 8.3 L 8.5 L (8.6-10.3) mg/dl Magnesium 1.6 L (1.7-2.4) mg/dl Troponin I High Sens 61.6 H* 39.5 H D 48.0 H (0-20) pg/ml
[2024-11-19 11:44] LABS: Troponin I High Sensitivity 39.5 pg/ml (0-20)
--- NOTE | 2024-11-19 12:54 | Pre Anesthesia Assessment ---
Date of Service November 19, 2024 Pre Sedation Assessment Vital Signs Temp Pulse Pulse Resp BP BP Pulse Ox 11/19/24 12:10 87 14 108/79 97 11/19/24 10:54 36.3 C L 85 20 101/72 98 11/19/24 08:00 11/19/24 07:19 36.3 C L 88 20 94/65 L 99 11/19/24 02:00 36.5 C 88 16 106/75 96 11/18/24 23:02 98 H 11/18/24 22:52 11/18/24 22:42 36.8 C 88 18 110/60 95 11/18/24 19:20 36.5 C 87 18 102/68 98 11/18/24 16:19 36.5 C 97 H 19 102/71 96 11/18/24 15:26 93 H O2 Del Method O2 Flow Rate 11/19/24 12:10 Room Air 11/19/24 10:54 Room Air 11/19/24 08:00 Nasal Cannula 2 11/19/24 07:19 Room Air 11/19/24 02:00 Room Air 11/18/24 23:02 11/18/24 22:52 Room Air 11/18/24 22:42 Room Air 11/18/24 19:20 Room Air 11/18/24 16:19 Room Air 11/18/24 15:26 Cardiovascular Additional Comments: Regular rate and rhythm. S4 gallop. No rubs or murmurs. Respiratory normal respiratory effort, lungs clear to auscultation Pre-Sedation Airway Assessment Smoking Status: Former smoker Hx Sleep Apnea: No Short, Thick Neck: No Thyromental Distance: > or= 3.5 Finger Breadths Oral Cavity: + Dentures Mallampati Class: III ASA: ASA4 NPO Status Date of Last Intake of Fluids: 11/18/24 Time of Last Intake of Fluids: 18:00 Date of Last Intake of Solid Food: 11/18/24 Time of Last Intake of Solid Foods: 18:00 Notes The planned sedation has been discussed with the patient. Informed Consent was obtained. I have identified the patient, determined the appropriateness of sedation and have assessed the patient immediately prior to the procedure. All medicine(s) and interventions are by my order.
[2024-11-19] MEDS: NITROGLYCERIN/D5W 100MCG/ML 20ML SYR ONE (14:59)
[2024-11-19] MEDS: niCARdipine 2,000 MCG/20 ML SYR ONE (14:59)
[2024-11-19] MEDS: fentaNYL citrate PF 100 MCG/2 ML VIAL ONE (15:05)
[2024-11-19] MEDS: MIDAZOLAM HCL 1 MG/ML 2ML VIAL ONE (15:05)
[2024-11-19] MEDS: HEPARIN (PORCINE) 1000 UNIT/ML 10 ML (CATH LAB USE ONLY) ONE (15:05)
[2024-11-19] MEDS: OPTIRAY 350 ONE (15:06)
--- NOTE | 2024-11-19 15:07 | Post Anesthesia Assessment ---
Date of Service November 19, 2024 Post Sedation Assessment Vital Signs Temp Pulse Pulse Resp BP BP Pulse Ox 11/19/24 12:10 87 14 108/79 97 11/19/24 10:54 36.3 C L 85 20 101/72 98 11/19/24 08:00 11/19/24 07:19 36.3 C L 88 20 94/65 L 99 11/19/24 02:00 36.5 C 88 16 106/75 96 11/18/24 23:02 98 H 11/18/24 22:52 11/18/24 22:42 36.8 C 88 18 110/60 95 11/18/24 19:20 36.5 C 87 18 102/68 98 11/18/24 16:19 36.5 C 97 H 19 102/71 96 11/18/24 15:26 93 H O2 Del Method O2 Flow Rate 11/19/24 12:10 Room Air 11/19/24 10:54 Room Air 11/19/24 08:00 Nasal Cannula 2 11/19/24 07:19 Room Air 11/19/24 02:00 Room Air 11/18/24 23:02 11/18/24 22:52 Room Air 11/18/24 22:42 Room Air 11/18/24 19:20 Room Air 11/18/24 16:19 Room Air 11/18/24 15:26 Recovery Score Activity: Moves 4 extremities Respiration: Deep Breath/Cough Circulation: +/-20% PreAnes Value Consciousness: Fully Awake Oxygen Saturation: > 92% On Room Air Discharge Sedation Level of Care: Fast Track Phase II Post Sedation Plan On clinical assessment, the patient appears to have tolerated the sedation with out complications. Patient is recovering as anticipated. Patient will continue to be monitored by nursing and may be discharged when sedation discharge criteria are met per below protocol. Upon Completions of procedure up to 15 minutes continue every 5 minute vital signs and the P.A.R. score; then discharge to a Phase I or Fast Track to Phase II per the following guidelines: * Discharge Patient to appropriate Phase II area if PAR is 8 or greater or return to pre- procedure baseline. The post - procedure orders will be as directed. * If PAR score is less than 8 or not return to pre-procedure baseline then patient will follow Phase I monitoring till PAR is reached for Phase II. The Phase I may be done in procedure room or may call to secure a Phase I area. * If naloxone or flumazenil are used for reversal, hold in Phase I for continued monitoring from when last reversal dose was given for a minimum of 60 minutes or longer pending the nurse and/or physician discretion of patient condition before discharge to Phase II. Please call the Sedation Physician to re-evaluate and complete post-note for discharge to Phase II area. Do NOT discharge from procedure sedation or Phase 1 until post- sedation evaluation note is complete by procedure /sedation MD Sedation Discharge Instructions to be given to the patient at discharge to home. [facility] [place] Procedure Codes (Charges) Indication for Procedure Indication for procedure: cardiomyopathy Sedation/Anesthesia Procedure 1: Sedation/Anesthesia: 21775 Mod Sedation by the same physician;Init15 Min Child Age 5 & Up (start 1454, end 1503)
--- NOTE | 2024-11-19 16:42 | Cardiac Catheterization ---
[facility] Data: Scratcher Tender Cardiac Status Clinical evaluation leading to the procedure CAD Presenation: Sx unlikely to be ischemic Anginal Classification: CCS IV (Dyspnea) Heart Failure: NYHA Class: CCS IV Cardiogenic Shock within 24 Hours: No Cardiac Arrest within 24 Hours: No Imaging Studies Past 6 Months: Yes Stress Studies Past 6 Months: No Coronary Anatomy Dominant: Right Left Main (% Stenosis): Normal LAD (% Stenosis): Normal D1 (% Stenosis): Normal Circumflex (% Stenosis): Normal OM1 (% Stenosis): Normal OM2 (% Stenosis): Normal L PL1 (% Stenosis): Normal RCA (% Stenosis): Normal R PDA (% Stenosis): Normal R PL1 (% Stenosis): Normal Ramus (% Stenosis): Normal Diagnostic Physicians Name: Salvador Rodriguez MD, PhD Closure Device Percutaneous Entry Location: Radial Closure Device: Radial Band Recommendations: Medical Therapy and/or Counseling Cardiac Cath Procedure Full Procedure Date November 19, 2024 Pre-Procedure Diagnosis Pre-Procedure Diagnosis: Cardiomyopathy AUC Score AUC Score: 07 Post-Procedure Diagnosis Post-Procedure Diagnosis: Normal Coronary Arteries Procedure(s) Performed Procedure(s) Performed: Coronary Angiography and Ultrasound Guided Vascular Access Bill Sorter Salvador Rodriguez MD, PhD Estimated Blood Loss Estimated Blood Loss: Less than 5 cc Medication(s) Medication(s): Fentanyl, Heparin, Lidocaine 1%, Nicardipine, Nitroglycerin and Versed Summary of Findings Brief description: Patient was brought to the cardiac catheterization suite where he was shaved and prepped in a sterile fashion. Sedated using IV Versed and fentanyl. Soft tissues of the right wrist were anesthetized using 2 mL of 1% Xylocaine. Using ultrasound for guidance (image saved), the right radial artery was accessed and a 6 [place] radial artery glide sheath was placed. Patient was provided anticoagulation with IV heparin and antispasmodics including nicardipine and nitroglycerin. All catheters were advanced and exchanged over a 0.035 J-tip wire. Left coronary angiography in orthogonal views with a 5 [place] 4 diagnostic catheter. Right coronary angiography in orthogonal views with a 5 [place] 4 diagnostic catheter. Diagnostic catheters were removed. Radial artery sheath was removed. Hemostasis was obtained using a TR band. Patient remained hemodynamically stable and asymptomatic. He was returned to the recovery area. This ended the case. Coronary angiography findings: LMT-large caliber vessel trifurcating into LAD, ramus, and circumflex. No angiographically evident disease. RKG-sehsy-ejsxsnp and transapical. Provides a large branching first diagonal. There is no more than mild luminal irregularities in the LAD and its branches. LCx-large caliber and nondominant. Travels in the AV groove where it gives an atrial branch, 2 small obtuse marginal branches, and then a large branching posterolateral. No angiographically evident disease in the circumflex or its branches. Ramus-small caliber vessel without disease. RCA-large caliber and dominant vessel. Bifurcates distally into the PDA and po sterolateral branches. There is no angiographically evident disease. Summary: 1. Normal epicardial coronary arteries. 2. Patient's cardiomyopathy is nonischemic. 3. Medical management per primary mechanical designer. Hemodynamics Rest Ao:: 90/68 mmHg Final Ao: 91/75 mmHg LV: Not performed Recommendations Recommendations: Medical Therapy and/or Counseling Radiation Exposure (mGy) 789 mGy, fluoroscopy time 2.1 minutes Contrast (mls) 70 cc Anesthesia 2 mg Versed, 50 mcg fentanyl IV. Start time 1454, end time 1503 Procedural Complication(s) None Disposition Scratcher Tender Holding/Recovery I attest to the content of the Intraoperative Record and any orders documented therein. Any exceptions are noted below. [facility] [place] Card Cath Procedure Codes Cardiac Catheterization Procedure 1: Cardiovascular Cath Procedures: 89879 Coronaries Therapeutic Services & Ancillary Procedure 1: Cardiovascular Tx and Anc Procedures: 56968 Ultrasonic Guidance Vascular Access Moderate Sedation Procedure 1: Sedation/Anesthesia: 95329 Mod Sedation by the same physician;Init15 Min Child Age 5 & Up (Initial 15 minutes, start time 1454, end time 1503) PG Care Time/CCT Total # of Minutes Spent Total Time Spent with Patient: Total time spent is greater than 50% in coordination of care (as documented) at patient's floor/unit and/or counseling patient:
--- NOTE | 2024-11-19 16:47 | Communication Note ---
Date of Service: November 19, 2024 Patient underwent cardiac catheterization today revealing angiographically normal coronary arteries. Patient therefore has presented with acute heart failure with severely reduced LV ejection fraction of 15-20% on echocardiogram due to a non-ischemic cardiomyopathy. Patient had a 22 beat run of NSVT last night. Recommend ongoing medical therapy along with wearable defibrillator pending a trial of 3-6 months of guideline directed medical therapy. Patient agreeable. Order for ASSURE WCD placed on chart.
[2024-11-19] MEDS: ACETAMINOPHEN 325 MG TAB PO PRN (19:43)
[2024-11-19] MEDS: MoRPHine SULFATE 2 MG/ML CARP IV STA (23:03)
[2024-11-20 06:01] LABS: BUN Creatinine Ratio 17.7 (10-20); Calcium 8.8 mg/dl (8.6-10.3); Creatinine Clr Calc Pharmacy 92.7 ml/min; Potassium 4.3 mmol/L (3.5-5.1)
[2024-11-20 08:27] LABS: Albumin 3.6 g/dL (3.8-4.8); Alpha 1 Globulin 0.4 g/dL (0.2-0.3); Alpha 2 Globulin 0.8 g/dL (0.5-0.9); Beta-1-Globulin 0.5 g/dL (0.4-0.6); Beta-2-Globulin 0.3 g/dL (0.2-0.5); Gamma Globulin 0.6 g/dL (0.8-1.7); Monoclonal Protein Band 1 DNR g/dL (NONE DETECTED); Monoclonal Protein Band 2 DNR g/dL (NONE DETECTED); Monoclonal Protein Band 3 DNR g/dL (NONE DETECTED); Total Protein 6.3 g/dL (6.1-8.1)
--- NOTE | 2024-11-20 11:00 | Cardiology Progress Note ---
Date of Service November 20, 2024 Assessment & Plan (1) Heart failure, systolic, with acute decompensation: (2) NSVT (nonsustained ventricular tachycardia): Plan 44-year-old male admitted on November 14, 2024 with signs and symptoms of acute decompensated heart failure. - TTE with moderately dilated left ventricle with severe global hypokinesis, severely reduced LV systolic function, EF 15 to 20%, mild to moderate mitral regurgitation. NYHA Class IV symptoms on presentation that have improved to class II-III Patient underwent cardiac catheterization 11/19/24 revealing angiographically normal coronary arteries. Patient therefore has presented with acute heart failure with severely reduced LV ejection fraction of 15-20% on echocardiogram due to a non-ischemic cardiomyopathy. Plan: Recommend ongoing medical therapy along with wearable defibrillator pending a trial of 3-6 months of guideline directed medical therapy. Order for ASSURE WCD placed on chart. - Occasional ventricular ectopy, NSVT -LDL 31 mg/dl this admission. Clinically improved, tolerating GDMT with recent dose increased to metoprolol succinate 37.5 mg BID on 11/18. Continue Entresto spironolactone - doses limited due to hypotension will plan on titration as outpatient. Start Jardiance 10 mg by mouth daily today,11/20. Genetic testing post discharge given familial history of heart failure Will arrange outpatient cardiology and clinical pharmacy follow up. Anticipate discharge in in next 24-48 hours depending of timing of ASSURE placement. Admission and Anticipated Discharge Date Admission Date: November 14, 2024 Subjective Mr Maciel is seen in cardiology follow up of acute CHF. Patient feeling well. Rested well overnight. Denies orthopnea. Telemetry reveals SR in the 90s. One 4 been run of NSVT 11/20/24, at 12:26 am. Had 22 beat run the night before that. Physical Exam Constitutional: no acute distress Eyes: PERRL, conjunctivae normal, anicteric sclerae ENMT: external ear and nose normal, oropharynx normal Neck: trachea midline, no thyromegaly Respiratory: Auscultation: lungs clear to auscultation bilaterally and + diminished lung sounds Cardiovascular: Rate/Rhythm: regular rate and regular rhythm Heart Sounds: + gallop (Summation); no murmur Vessels: no JVD Extremities: no edema (Right radial artery catheterization site, is clean,dry,intact, no ecchymosi) Gastrointestinal (Abdomen): normal bowel sounds, soft, nontender, no hepatosplenomegaly Musculoskeletal: no cyanosis or clubbing, extremities motor strength 5/5 Results & Data Vital Signs (Past 12 Hours) Vital Signs Temp Pulse Pulse Resp BP Pulse Ox O2 Del Method 11/20/24 08:14 88 11/20/24 07:24 36.3 C L 92 H 20 108/76 96 Room Air 11/20/24 03:00 36.6 C 96 H 18 100/69 94 Room Air 11/19/24 23:28 88 11/19/24 22:52 36.6 C 100 H 18 93/68 L 96 Room Air Laboratory Results Cardiac Enzymes 11/19/24 11/19/24 11/19/24 Range/Units 05:23 11:46 17:31 Troponin I High Sens 39.5 H D 48.0 H 41.7 H (0-20) pg/ml Comprehensive Metabolic Panel 11/20/24 Range/Units 05:17 Sodium 135 L (136-145) mmol/L Potassium 4.3 (3.5-5.1) mmol/L Chloride 103 (98-107) mmol/L Carbon Dioxide 26 (21-32) mmol/L BUN 22 (6-23) mg/dl Creatinine 1.24 (0.6-1.4) mg/dl Glucose 108 H (70-99(Fasting)) mg/dl Calcium 8.8 (8.6-10.3) mg/dl Intake and Output 11/19/24 11/20/24 11/20/24 22:59 06:59 14:59 Intake Total 670 / 970 200 / 970 Balance 670 / 970 200 / 970 Intake: Oral 670 / 870 200 / 870 Other: Weight 98 kg Weight Measurement Method Standing Scale
[2024-11-20] MEDS: EMPAGLIFLOZIN 10 MG TAB PO SCH (11:39)
--- NOTE | 2024-11-20 12:13 | Hospitalist Progress Note ---
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 CXR noted congestion, cardiomegaly and pleural effusion. Recent CTA chest in [place] w/ no PE, had b/l pl effusion. BNP elevated 1772 TTE showed EF 15-20%, severe global hypokinesis of LV, mild to mod MR, mild TR, mod dil IVC, RVSP 40-50mmHg Cardiac cath which showed normal coronaries Patient did well with IV diuretics. Now on po spironolactone Continue entresto Discussed with Professor Of Anthropology Dr Rosado. Continue med optimization and arrangements being made for lifevest Continue Metoprolol succinate 37.5mg BID Jardiance added by Cardiology Other workup notable for positive lyme screen, on doxycycline therapy Continue buspirone for anxiety History of asthma: Not wheezing, stable, continue home inhalers. History of GERD: Continue home omeprazole DVT prophylaxis: Lovenox sq Full code I spent a total of 50 minutes coordinating, documenting and providing care for this patient excluding time spent in performance of separately billed services Admission and Anticipated Discharge Date Admission Date: November 14, 2024 Subjective Patient seen and examined Reports symptoms continue to improve Tele showed one 4 beat NSVT overnight Physical Exam Constitutional: + well hydrated; no acute distress Eyes: PERRL, conjunctivae normal, anicteric sclerae ENMT: external ear and nose normal, oropharynx normal Respiratory: normal respiratory effort; no respiratory distress Cardiovascular: Rate/Rhythm: regular rate and regular rhythm Gastrointestinal (Abdomen): normal bowel sounds, soft, nontender, no hepatosplenomegaly Musculoskeletal: No pedal edema Neurologic: PERRL, EOMI, accommodation nl, no face palsy, no dysarthria Psychiatric: A+Ox3, euthymic affect Results & Data Results & Data Vital Signs (Past 12 Hours) Vital Signs Temp Pulse Pulse Resp BP Pulse Ox O2 Del Method 11/20/24 11:07 36.2 C L 107 H 22 110/80 99 Room Air 11/20/24 08:14 88 11/20/24 07:24 36.3 C L 92 H 20 108/76 96 Room Air 11/20/24 03:00 36.6 C 96 H 18 100/69 94 Room Air Laboratory Results Abnormal lab results 11/14/24 11/19/24 11/19/24 Range/Units 10:00 11:46 17:31 Sodium (136-145) mmol/L Glucose (70-99(Fasting)) mg/dl Troponin I High Sens 48.0 H 41.7 H (0-20) pg/ml Albumin (PEP) 3.6 L (3.8-4.8) g/dL [id number] 0.4 H (0.2-0.3) g/dL Gamma Globulins 0.6 L (0.8-1.7) g/dL 11/20/24 Range/Units 05:17 Sodium 135 L (136-145) mmol/L Glucose 108 H (70-99(Fasting)) mg/dl Troponin I High Sens (0-20) pg/ml Albumin (PEP) (3.8-4.8) g/dL [id number] (0.2-0.3) g/dL Gamma Globulins (0.8-1.7) g/dL
[2024-11-20 15:26] VITALS: BP 102/65; RESP 20; TEMP 97.5; O2SAT 95
[2024-11-20 16:25] VITALS: PULSE 113
--- NOTE | 2024-11-20 16:42 | Discharge Summary ---
Date of Service November 20, 2024 Admission HPI Per Admitting Provider 43-year-old male with PMH of asthma, rectal abscess, GERD presented to the ED with complaint of progressive shortness of breath and weight gain. 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 Patient reports going to 2 diff. convenient cares few days apart and from the 2nd one he was referred to [facility] where he was diagnosed with pneumonia and prescribed antibiotic which he took for 2 days worth but he continued to get short of breath and presented to our ED. Patient reports cough with clear sputum for whole duration of symptoms, denies fever or sore throat. Patient had transient chest discomfort today morning which resolved on its own, denies any chest pain prior to that. Patient denies any belly pain/diarrhea/nausea/vomiting. Patient reports moving bowel daily but feels constipated. Patient reports being able to eat okay and denies any pain or burning with passing urine. Patient reports quitting smoking about 6 months ago, smoked an average of 1 packs a day for about 20 years. Patient reports not drinking any alcohol products in the last 1 week, generally drinks 2-4 beer a week. Patient denies any recreational drug use but reports having medical cannabis. Medications reviewed with the patient at bedside. Plan of care discussed with the patient in detail, he voiced understanding and was agreeable. Full code as per my discussion with the patient. Admission Exam Per Admitting Provider GENERAL: Alert and oriented x3. NAD, on RA. HEENT: No pallor, no icterus. Pupils equal, round and reactive to light. Oral mucosa moist. NECK: No JVD, no neck masses. HEART: S1 and S2 heard. Regular rate and rhythm. HR in 100s. No murmur, no gallop. RESPIRATORY SYSTEM: Normal AP diameter. No accessory muscle use. No wheezing, b/l crackles, Rt base > left base decreased breath sounds. ABDOMEN: Soft, bowel sounds present, nontender, + distention. CENTRAL NERVOUS SYSTEM: No facial droop. Speech is clear. Obeys simple commands. Moves extremities. EXTREMITIES: 2+ ble edema, no erythema seen. Principal Diagnosis Acute systolic heart failure Non sustained ventricular tachycardia Discharge Exam Constitutional + well hydrated; no acute distress Eyes PERRL, conjunctivae normal, anicteric sclerae ENMT external ear and nose normal, oropharynx normal Respiratory normal respiratory effort; no respiratory distress Diminished breath sounds Cardiovascular Rate/Rhythm: regular rate and regular rhythm Gastrointestinal (Abdomen) normal bowel sounds, soft, nontender, no hepatosplenomegaly Musculoskeletal No pedal edema Neurologic PERRL, EOMI, accommodation nl, no face palsy, no dysarthria Psychiatric A+Ox3, euthymic affect Discharge Data Allergies Allergy/AdvReac Type Severity Reaction Status Date / Time No Known Allergies Allergy Verified 10/03/24 15:31 Consultations 11/14/24 11:42 ED Decision to Admit Stat 11/14/24 12:02 Consult Cardiology Routine Procedures Performed Operation Date: 11/19/24 10:00 Actual Procedures p Cineradiography w/Routine Exam - Salvador Rodriguez MD, PhD p Cath, Coronaries ONLY (no LV) - Salvador Rodriguez MD, PhD Ordered Studies 11/16/24 11:41 CT chest diagnostic wo con Routine 11/19/24 08:46 CL Cath Imgs for PACS use only Routine Hospital Course (1) Congestive heart failure: (2) Heart failure, systolic, with acute decompensation: Plan 44 year old man with h/o IVDU (quit a long time ago), previous smoker who presents with progressive shortness of breath for about 10 days, 25 pound weight gain in the last 13 days 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 CXR noted congestion, cardiomegaly and pleural effusion. Recent CTA chest in [place] w/ no PE, had b/l pl effusion. BNP elevated 1772 TTE showed EF 15-20%, severe global hypokinesis of LV, mild to mod MR, mild TR, mod dil IVC, RVSP 40-50mmHg Cardiac cath which showed normal coronaries Required IV diuretics inpatient Started on po spironolactone, entresto, Metoprolol succinate 37.5mg BID Jardiance also added by Cardiology Life vest arranged and provided by Cardiology Needs to follow up with PCP and Cardiology outpatient Provided education regarding heart failure, avoid smoking or any illicit drug use Other workup notable for positive lyme screen, on doxycycline therapy to complete therapy Total Time Total Time Spent Total Time Spent (In Minutes): 50 Total Time Includes: Examination of the Patient, Discharge Planning, Medication Reconciliation and Communication With Other Providers Discharge Plan Discharge Items Patient Disposition: Home - Self-Care Reason For Visit: PROG SOB, WT GAIN Discharge Diagnosis: Acute systolic heart failure Non sustained ventricular tachycardia Activity: Resume your previous activity Non-emergency contact: Primary Care Provider and Performance Improvement Analyst Call non-emergency contact if: you have any medication questions and your symptoms worsen Follow-up/Referrals: Will Holland DO [Primary Care Provider] - 12/05/24 10:20 am Diet: Heart Healthy Addtl Attending Provider Instructions: Mr Maciel You were hospitalized and managed for the above listed diagnoses. You also had cardiac catheterization. You are being discharged on new medications for heart failure Please use the life vest as instructed and ensure follow up with Cardiology and your Primary Doctor It was a pleasure taking care of you Pending Studies at Discharge: No Stand-Alone Forms: My for; to (do), Smoking Cessation Medications and DC Order Prescriptions: New doxycycline hyclate 100 mg Capsule 100 mg PO BID 5 Days Qty: 10 0RF spironolactone 25 mg Tablet 12.5 mg PO QAM 30 Days Qty: 15 0RF metoprolol succinate 25 mg Tablet Extended Release 24 Hr 37.5 mg PO BID 30 Days Qty: 90 0RF Entresto 24-26 mg Tablet 0.5 tab PO BID Qty: 30 0RF magnesium oxide 400 mg (241.3 mg magnesium) Tablet 400 mg PO QAM Qty: 30 0RF Jardiance 10 mg Tablet 10 mg PO DAILY 30 Days Qty: 30 0RF Continued albuterol sulfate 90 mcg/actuation HFA aerosol inhaler 2 puff inhalation Q6H PRN (Reason: asthma) Rx Instructions: 11/14-no fill histor. unable to verify omeprazole 20 mg capsule,delayed release(DR/EC) 20 mg PO QAM Rx Instructions: filled 09/06 90 day supply Medical Thc 1 unit 1 unit inhalation UD PRN (Reason: Anxiety) Rx Instructions: 11/14-unable to verify Discontinued amoxicillin-pot clavulanate 875-125 mg tablet 1 tab PO BID Rx Instructions: filled 11/12/24 10 day supply Discharge Orders: Discharge Order (Routine); Ordered 11/20/24 Ordered By: Kary Velazquez Admission Data Admit Date/Time: 11/14/24 12:03 Attending Provider: Kary Velazquez I. Admit Provider: Manolo Castrejon Primary Care Provider: Will Holland Other Providers: Manolo Castrejon; Emile Bajwa Other Interventions: Discharge Summary Assessment (RN) Last Done: 11/20/24 16:23
== END 2024-11-20 17:10 | disposition home or self-care (01) | DRG 287 ==
LOC: ED 09:43 → 4W 12:03 → SUATTDRO 12:03 → 4W 12:40
PROC: CLB.CCO (2024-11-19 10:00)
DX: I34.0 Nonrheumatic mitral (valve) insufficiency; J44.9 Chronic obstructive pulmonary disease, unspecified; I42.8 Other cardiomyopathies; Z82.49 Family history of ischemic heart disease and other diseases of the circulatory system; I47.29 Other ventricular tachycardia; I50.21 Acute systolic (congestive) heart failure; R73.9 Hyperglycemia, unspecified; K21.9 Gastro-esophageal reflux disease without esophagitis; J45.909 Unspecified asthma, uncomplicated; Z79.899 Other long term (current) drug therapy; I42.0 Dilated cardiomyopathy; F17.220 Nicotine dependence, chewing tobacco, uncomplicated